=== PATIENT | female | born 1945 | race Caucasian/White ===

== ENCOUNTER 2017-04-21 15:20 | Emergency (ER) | payer MEDICARE ==
[2017-04-21 15:41] VITALS: BP 150/93
--- NOTE | 2017-04-21 18:03 | UC ---
Back Pain HPI - HPI Summary HPI Summary: Has been working with Primary care doctor to manage pain in arms and back - Patient is concerned with her increase sensitivity to tactile stimuli she needs an MRI-She states that no medications given to her by her doctor help. She states she is not sleeping well but she must take he provigil and refuses to decrease or hold dose. She states she does not want to take Neurontin as she is concerned it will depress her. Pt did not follow up on an appointment with pcp last week-- - History of Current Complaint Chief Complaint: UCGeneralIllness Stated Complaint: NERVE PAIN Time Seen by Provider: 04/21/17 16:42 Hx Obtained From: Patient ?: No Onset/Duration: Gradual Onset, Lasting Weeks, Still Present Timing: Constant Severity Initially: Moderate Severity Currently: Moderate Pain Intensity: 8 Pain Scale Used: 0-10 Numeric Back Pain: Is Diffuse Character: Aching, Unable to Describe - tactile discomfort Aggravating Factor(s): Movement, Lifting, Bending Alleviating Factor(s): Nothing Associated Signs And Symptoms: Positive: Negative - Allergies/Home Medications Allergies/Adverse Reactions: Allergies Allergy/AdvReac Type Severity Reaction Status Date / Time Cephalexin [From Keflex] Allergy Itching Verified 08/13/14 13:36 NSAIDs Allergy See Comment Verified 04/21/17 15:42 PMH/Surg Hx/FS Hx/Imm Hx Previously Healthy: No Endocrine History: Hypothyroidism Cardiovascular History: Hypertension Cancer History: Breast Cancer Other Cancer History: right breast reconstruction -patient states the implant has "calcified" - Surgical History Surgical History: Yes Surgery Procedure, Year, and Place: 1991, RIGHT BREAST L[place]PECTOMY, [place]. AXILLARY SURGERY 1991, [place] NT. [facility] [place], 1995. 1999, ABDOMINOPLASTY, [facility] [place]. 2005, RIGHT BREAST RECONSTRUCRION, [facility] [place]. 2013 RACHEL CARPAL TUNNEL RELEASE, [facility] [place] - Family History Known Family History: Positive: Unknown - Social History Occupation: Works From/At Home Lives: Alone Alcohol Use: None Substance Use Type: None Smoking Status (MU): Former Smoker Review of Systems Constitutional: Negative Skin: Negative Eyes: Negative ENT: Negative Respiratory: Negative Cardiovascular: Negative Gastrointestinal: Negative Genitourinary: Negative Motor: Negative Neurovascular: Negative Musculoskeletal: Negative, Other: - pain in her skin Neurological: Negative Psychological: Negative Is Patient Immunocompromised?: No All Other Systems Reviewed And Are Negative: Yes Physical Exam Triage Information Reviewed: Yes Appearance: Well-Appearing, No Pain Distress, Well-Nourished, Other: - very animated-stead gait moving all extremities with vigor Vital Signs: Initial Vital Signs Temp 98.2 F 04/21/17 15:37 Pulse 120 04/21/17 15:37 Resp 18 04/21/17 15:37 BP 150/93 04/21/17 15:37 Pulse Ox 99 04/21/17 15:37 Vital Signs Reviewed: Yes Eye Exam: Normal Eyes: Positive: Conjunctiva Clear ENT Exam: Normal ENT: Positive: Normal ENT inspection, Hearing grossly normal. Negative: Nasal congestion, Nasal drainage, Trismus, Muffled voice, Hoarse voice, Dental tenderness, Sinus tenderness Dental Exam: Normal Neck exam: Normal Neck: Positive: Supple, Nontender, No Lymphadenopathy, Other: - skin is tender to tough some trapezius muscle pain Respiratory Exam: Normal Respiratory: Positive: Other: - right breat implant swollen and firm states pcp and Dr. Deleon are aware---states it is calcified---patient unable to say if and studies have been done to evaluate the implant/breast Cardiovascular Exam: Normal Cardiovascular: Positive: No Murmur, Pulses Normal, Brisk Capillary Refill, Tachycardia Abdominal Exam: Normal Abdomen Description: Positive: Nontender, No Organomegaly, Soft Musculoskeletal Exam: Normal Musculoskeletal: Positive: Strength Intact, ROM Intact, No Edema Neurological Exam: Normal Neurological: Positive: Alert, Muscle Tone Normal Psychological Exam: Normal Skin Exam: Normal Back Pain Course/Dx - Course Course Of Treatment: encourage patient to accept appointment with pcp as she is seeking non-urgent MRI studies of neck for evaluation of discomfort, refused pain medications from me, also told she could go to ED for evaluation, but unsure with out acute neuro deficits that they would order a MRI in the ED-Plan to call and follow with pcp in morning - Differential Dx/Diagnosis Provider Diagnoses: Myalgia, Parestesia Discharge - Discharge Plan Condition: Stable Disposition: HOME Patient Education Materials: Cervical Spinal Stenosis (ED) Referrals: Arlet Solorio MD [Primary Care Provider] - 1 Day
== END 2017-04-21 17:30 | disposition home or self-care (01) ==
LOC: UCEAST 15:20
DX: M79.1 Myalgia (principal); R20.2 Paresthesia of skin; Z88.1 Allergy status to other antibiotic agents; Z88.6 Allergy status to analgesic agent; Z87.891 Personal history of nicotine dependence; M54.9 Dorsalgia, unspecified; M79.602 Pain in left arm; M79.601 Pain in right arm; I10 Essential (primary) hypertension
CPT/HCPCS: 99211; G0463

== ENCOUNTER 2018-06-24 15:35 | Inpatient (IN) | payer MEDICARE ==
--- NOTE | 2018-06-24 17:42 | ED ---
Dizziness - HPI Summary HPI Summary: This patient is a 72 year old female presenting to [facility] with a chief complaint of weakness since 5 days ago. Patient has a hx of brachial plexopathy. Patient states that she woke up on Tuesday and had trouble ambulating. She states that her symptoms are worsening. Patient states that she cannot walk. She states that the patient is scheduled to have neck surgery with Dr. Miller on 2018. The pain is rated 7/10 in severity. Symptoms aggravated by nothing. Symptoms alleviated by nothing. Patient additionally notes abd pain. - History Of Current Complaint Chief Complaint: EDWeakness Stated Complaint: "UNABLE TO AMBULATE PER PT" Time Seen by Provider: 06/24/18 17:19 Hx Obtained From: Patient Onset/Duration: Still Present, Gradually Timing: Constant Severity Currently: Moderate Character: Weak Aggravating Factor(s): Nothing Alleviating Factor(s): Nothing Associated Signs And Symptoms: Positive: Inability to Walk, Other: - abd pain - Allergies/Home Medications Allergies/Adverse Reactions: Allergies Allergy/AdvReac Type Severity Reaction Status Date / Time cephalexin [From Keflex] Allergy Severe Anaphylatic Verified 06/24/18 15:50 Shock NSAIDS (Non-Steroidal Allergy Severe Anaphylatic Verified 06/24/18 15:50 Anti-Inflamma Shock Home Medications: Home Medications Acetaminophen [Non-Aspirin Extra Strength] 1,000 mg PO Q6H 06/24/18 [History Confirmed 06/24/18] Ascorbic Acid [Vitamin C] 1,000 mg PO DAILY 06/24/18 [History Confirmed 06/24/18 ] Cinnamon Bark/Chromium Picolin [Cinnamon Plus Chromium Capsule] 1,000 mg PO 0500 06/24/18 [History Confirmed 06/24/18] Gabapentin 600 mg PO Q6H 06/24/18 [History Confirmed 06/24/18] Hydrochlorothiazide TAB* [Hydrodiuril TAB*] 25 mg PO DAILY 06/24/18 [History Confirmed 06/24/18] Juice Plus + 0.8 g PO DAILY 06/24/18 [History Confirmed 06/24/18] Levothyroxine TAB* [Synthroid TAB*] 112 mcg PO DAILY 06/24/18 [History Confirmed 06/24/18] Lisinopril 20 mg PO DAILY 06/24/18 [History Confirmed 06/24/18] Modafinil [Provigil] 200 mg PO BID 06/24/18 [History Confirmed 06/24/18] [place]-3S/Dha/Epa/Fish Oil [Fish Oil 1,200 mg Softgel] 1 cap PO DAILY 06/24/18 [ History Confirmed 06/24/18] Silver Sulfadiazine 1% 400gm* [SILVadine 1% 400 gm jar*] 1 applic TOPICAL DAILY 06/24/18 [History Confirmed 06/24/18] Tramadol HCl 100 mg PO Q6H 06/24/18 [History Confirmed 06/24/18] Turmeric Root Extract [Turmeric Curcumin] 500 mg PO DAILY 06/24/18 [History Confirmed 06/24/18] Vitamin B Complex CAP* [B Complex CAP*] 1 cap PO DAILY 06/24/18 [History Confirmed 06/24/18] Niacin 535 mg PO DAILY 06/25/18 [History Confirmed 06/25/18] Resveratrol 350 mg PO DAILY 06/25/18 [History Confirmed 06/25/18] PMH/Surg Hx/FS Hx/Imm Hx Previously Healthy: No Endocrine/Hematology History: Reports: Hx Thyroid Disease Denies: Hx Diabetes Cardiovascular History: Reports: Hx Hypertension - ON MEDS - WELL CONTROLLED Denies: Hx Pacemaker/ICD Respiratory History: Denies: Hx Asthma History: Denies: Hx Renal Disease Sensory History: Denies: Hx Hearing Aid Psychiatric History: Denies: Hx Panic Disorder - Cancer History Cancer Type, Location and Year: BREAST 1991 Hx Chemotherapy: Yes - 1991 Hx Radiation Therapy: Yes - 1991 - Surgical History Surgery Procedure, Year, and Place: 1991, RIGHT BREAST LUMPECTOMY, [place]. AXILLARY SURGERY 1991, [place] NT. [facility] [place], 1995. 1999, ABDOMINOPLASTY, [facility] [place]. 2004, RIGHT BREAST RECONSTRUCTION, [facility] [place]. 2013 RACHEL CARPAL TUNNEL RELEASE, [facility] [place] Infectious Disease History: No Infectious Disease History: Denies: Traveled Outside the [place] in Last 30 Days - Family History Known Family History: Negative: Diabetes - Social History Alcohol Use: None Hx Substance Use: No Substance Use Type: Reports: None Hx Tobacco Use: Yes Smoking Status (MU): Former Smoker Review of Systems Negative: Fever Positive: Abdominal Pain Neurological: Other - inability to ambulate Positive: Weakness All Other Systems Reviewed And Are Negative: Yes Physical Exam - Summary Physical Exam Summary: Appearance: The patient is emaciated in no acute distress and in no acute pain. Skin: The skin is warm and dry and skin color reflects adequate perfusion. HEENT: The head is normocephalic and atraumatic. The pupils are equal and reactive. The conjunctivae are clear and without drainage. Nares are patent and without drainage. Mouth reveals moist mucous membranes and the throat is without erythema and exudate. The external ears are intact. The ear canals are patent and without drainage. The tympanic membranes are intact. Neck: The neck is supple with full range of motion and non-tender. There are no carotid bruits. There is no neck vein distension. Respiratory: Chest is non-tender. Lungs are clear to auscultation and breath sounds are symmetrical and equal. Cardiovascular: Heart is regular rate and rhythm. There is no murmur or rub auscultated. There is no peripheral edema and pulses are symmetrical and equal. Abdomen: The abdomen is soft and non-tender. There are normal bowel sounds heard in all four quadrants and there is no organomegaly palpated. Musculoskeletal: There is no back tenderness noted. No workforce management analyst. No intrinsic muscle use in hand except minorly in left hand. Aduct thumb and flex third and fourth fingers slightly. Neurological: Patient is alert and oriented to person, place and time. Cranial nerves are grossly intact. Deep tendon reflexes are symmetrical and equal in all four extremities. Psychiatric: The patient has an appropriate affect and does not exhibit any anxiety or depression. Triage Information Reviewed: Yes Vital Signs On Initial Exam: Initial Vitals Temp Pulse Resp BP Pulse Ox 97.6 F 83 14 123/69 93 06/24/18 15:43 06/24/18 15:43 06/24/18 15:43 06/24/18 15:43 06/24/18 15:43 Vital Signs Reviewed: Yes Diagnostics - Vital Signs Vital Signs Temp Pulse Resp BP Pulse Ox 06/24/18 15:43 97.6 F 83 14 123/69 93 - Laboratory Result Diagrams: 06/25/18 06:17 06/25/18 06:17 Lab Statement: Any lab studies that have been ordered have been reviewed, and results considered in the medical decision making process. Dizzy Course/Dx - Course Course Of Treatment: Ms. Morales presented complaining of increased weakness. She has chronic neck pain and a brachial plexopathy. She had an MRI scan of her neck and low back a couple weeks ago. She has been getting steadily worse and essentially not getting out of bed and not eating. She has developed a decubitus ulcer. She comes in complaining that she cannot take care of herself anymore. She was reportedly supposed to have a visiting nurse come in on a daily basis but that has not been initiated yet. Her exam is remarkable for severe muscle wasting and weakness. She has an infected-looking decubitus ulcer. She was found to have a leukocytosis and to be severely dehydrated on labs. I asked the hospitalist service to consult for admission. She was given antibiotics and fluids in the emergency department. She did not meet septic criteria that she was treated aggressively. - Diagnoses Provider Diagnoses: Needs assistance while at home, Decubitus ulcer - Provider Notifications Discussed Care Of Patient With: Kieran Faith - Hospitalist Time Discussed With Above Provider: 19:47 - We discussed patient care with Dr. Faith (Hospitalist) at 1947 and they agreed to accept the patient. - Critical Care Time Critical Care Time: 30-74 min Discharge - Sign-Out/Discharge Documenting (check all that apply): Patient Departure Patient Received Moderate/Deep Sedation with Procedure: No - Discharge Plan Condition: Stable Disposition: ADMITTED TO [facility] - Billing Disposition and Condition Condition: STABLE Disposition: Admitted to [facility] - Attestation Statements Document Initiated by Bobby: Yes Documenting Scribbrandie: Kandice Elmore Provider For Whom Bobby is Documenting (Include Credential): MD Fabio Mirandaibbrandie Attestation: Kandice Alexandre, scribed for Devin Rojo MD on 06/25/18 at 1216. Scribe Documentation Reviewed: Yes Provider Attestation: The documentation as recorded by the Kandice garner accurately reflects the service I personally performed and the decisions made by me, Devin Rojo MD Status of Scribe Document: Viewed
[2018-06-24 18:24] LABS: ABS Basophils 0 10^3/ul (0-0.2); ABS Eosinophils 0.2 10^3/ul (0-0.6); ABS Lymphocytes 0.9 10^3/ul (1.0-4.8); ABS Monocytes 1.1 10^3/ul (0-0.8); ABS Neutrophils 10.4 10^3/ul (1.5-7.7); ABS Nucleated RBC 0 10^3/ul; Eosinophil % 1.5 %; Hematocrit 31 % (33-41); Hemoglobin 10.3 g/dL (12.0-16.0); Mean Corpuscular HGB Conc 33 g/dL (31-36); Mean Corpuscular Hemoglobin 32 pg (27-31); Mean Corpuscular Volume 96 fL (80-97); Mean Platelet Volume 7.3 fL (7.4-10.4); Nucleated Red Blood Cells % 0; Platelet Count 379 10^3/uL (150-450); Red Blood Count 3.21 10^6 /uL (3.70-4.87); Red Cell Distribution Width 13 % (10.5-15); White Blood Count 12.6 10^3/uL (3.5-10.8)
[2018-06-24 18:33] LABS: Albumin/Globulin Ratio 1.1 (1-3); BUN/Creatinine Ratio 45.2 (8-20); C Reactive Protein 306.9 mg/L (<8.01); Calcium 10.1 mg/dL (8.6-10.3); EGFR African American 34.1 (>60); EGFR Non-African American 28.2 (>60); Globulin 3.7 g/dL (2-4); Potassium 4.6 mmol/L (3.5-5.0); Total Bilirubin 0.4 mg/dL (0.2-1.0); Total Protein 7.7 g/dL (6.4-8.9)
[2018-06-24] MEDS ORDERED: Vancomycin(*) 1,000 MG in NS 0.9% 250 ML* 250 ML IVPB ONE (19:37)
[2018-06-24] MEDS ORDERED: NS 0.9% 1000 ML** 1,000 ML IV ONE (19:37)
[2018-06-24] MEDS ORDERED: traMADol TAB* 50 MG PO PRN (22:42)
[2018-06-24] MEDS ORDERED: Vancomycin(*) 0 MG in NS 0.9% 250 ML* 250 ML IVPB SCH (23:00)
--- NOTE | 2018-06-24 23:30 | PN ---
Progress Note - Progress Note Date of Service: 06/24/18 Note: Sacrum - See below Sacral wound - There is an unstageable pressure injury to the left sacrum, this area measures 2 cm x 2 cm. There is a superficial open area (this is where they have been applying silvadene), this area measures 5 cm x 4 cm x 0.1 cm. THere is a deep tissue injury to the right side of the sacrum. The surrounding skin has erythema and warm to the touch. There is some signs of a moisture associated skin injury to the left upper buttock.
[2018-06-25] MEDS: Gabapentin CAP(*) 300 MG PO SCH ×5 (00:13→22:19)
[2018-06-25] MEDS: NS 0.9% 1000 ML** 1,000 ML IV SCH ×2 (00:15→10:44)
[2018-06-25] MEDS: Morphine INJ* 2 MG/ML 1 ML SYRINGE (TWO MG - NEW SYRINGE VERSION) IV PRN ×2 (02:04→09:04)
[2018-06-25] MEDS ORDERED: Vancomycin per Pharmacy* NOTE FOLLOW UP PRN (02:33)
[2018-06-25 03:12] LABS: Urine Appearance Cloudy; Urine Bilirubin Negative (Negative); Urine Blood Negative (Negative); Urine Color Amber; Urine Glucose Negative (Negative); Urine Ketones Negative (Negative); Urine Nitrite Negative (Negative); Urine Protein Negative (Negative); Urine Specific Gravity 1.019 (1.010-1.030); Urine Urobilinogen Negative (Negative)
--- NOTE | 2018-06-25 04:16 | HP ---
CC: Rajwinder Coyle NP * HISTORY AND PHYSICAL: DATE OF ADMISSION: 06/24/18 PRIMARY CARE PROVIDER: Rajwinder Coyle NP. ATTENDING PHYSICIAN: Dr. Kieran Faith * (dictated by She Gore NP). CHIEF COMPLAINT: Pressure ulcer. HISTORY OF PRESENT ILLNESS: Ms. Morales is a 72-year-old female with a past medical history significant for hypothyroidism, hypertension, breast cancer; status post chemoradiation and breast lumpectomy, hyperlipidemia, and depression who states that approximately a week and a half ago she developed a pressure ulcer to her buttocks. Ms. Morales states that she has had difficulty with ambulation since 06/19/18, when she was seen at 2 doctors' offices in 1 day and felt that she did too much on that day. Prior to that, her mobility has been limited due to spinal stenosis. According to her medical record, her PCP notes she originally was seen for brachial plexopathy 1 to 2 years ago and was hesitant to have surgery. She reports seeing Neurosurgery, who according to her stated that she did not need to have surgery at that time. She has continued to have increased weakness in both arms and some lower extremity weakness in addition to bowel and bladder incontinence. She saw Dr. Miller after a cervical spine MRI showing "degenerative disk disease, osteoarthritis, a mild myelopathy at C3-4, moderate narrowing of the cervical canal at C3-C4, C4-C5, C5-C6, and C6-C7 with [id number] narrowing at C7- T1 and mild C2-C3 multilevel neural foraminal narrowing as previously discussed ". She reports sleeping in a recliner and she is unable to lie on her sides due to the discomfort in her arms. She is scheduled for cervical spine surgery on 07/04/[address] Miller. Due to not being very mobile, she developed a pressure injury that she reports has been present for approximately a week and a half. She states that the area started out to be approximately dime-sized. She saw her primary care provider on 06/19/18. At that time, the wound is described as being 3 cm and scabbed with no exudate or surrounding erythema. She was prescribed Silvadene twice daily and encouraged to use an eggcrate in her recliner. The patient continued to become more immobile over the past week. She denied any fevers, chills, chest pain, shortness of breath, cough, nausea, vomiting, diarrhea, abdominal pain. She reports upper and lower extremity weakness, some irritation when swallowing for 2 days, feeling as though something may be stuck and then this passes. She has intermittent bowel and bladder incontinence for approximately 1 month. She reports the pain in her buttocks is 7/10. She reports recently taking a vitamin D supplement, but when its level was high she discontinued it. When she continued to have discomfort and the wound became larger, she presented to the emergency room for further evaluation of her symptoms. While in the emergency room, she had labs showing leukocytosis with a white blood cell count of 12.6. She is afebrile, is not tachycardic. She is not tachypneic. She has a CRP of 367. She is noted to have elevated LFTs. She has elevated BUN and creatinine. Her BUN is significantly elevated from her previous labs and her creatinine is elevated. She appears to have stage 3 chronic kidney disease at baseline. She denies urinary symptoms such as dysuria , urgency, or frequency. She got a dose of vancomycin and 1 L of normal saline while in the emergency room. Hospitalists were asked to evaluate the patient for admission. PAST MEDICAL HISTORY: 1. Breast cancer, status post lumpectomy, chemotherapy, and radiation therapy. 2. Hypertension. 3. Hyperlipidemia. 4. Depression. 5. Bilateral carpal tunnel. 6. Hypothyroidism. 7. Former smoker. 8. Spondylosis with myelopathy of the cervical region. 9. Lumbar spinal stenosis. 10. Brachial plexopathy. 11. Anxiety. PAST SURGICAL HISTORY: 1. Status post right breast lumpectomy and lymph node dissection. 2. Status post abdominoplasty. 3. Status post right breast reconstruction. 4. Status post bilateral carpal tunnel releases. 5. Status post 2 cosmetic facial surgeries. 6. Status post right rotator cuff repair. HOME MEDICATIONS: 1. Gabapentin 600 mg by mouth every 6 hours. 2. Hydrochlorothiazide 25 mg by mouth daily. 3. Levothyroxine 112 mcg by mouth daily. 4. Lisinopril 20 mg by mouth daily. 5. Provigil 200 mg by mouth at 8 a.m. and 2 p.m. 6. Tramadol 100 mg by mouth every 6 hours. 7. Tylenol 1000 mg by mouth every 6 hours. 8. B complex 1 tablet by mouth daily. 9. Cinnamon plus chromium 1000 mg by mouth daily. 10. CoQ10 omega 3-5-9 1 tablet by mouth daily. 11. Fish oil 1200 mg by mouth daily. 12. Juice Plus 2 tablets by mouth daily. 13. Niacin 535 mg by mouth daily. 14. Resveratrol 350 mg by mouth daily. 15. Turmeric/curcumin 500 mg by mouth daily. 16. Vitamin C 1000 mg by mouth daily. 17. Vitamin E 670 mg by mouth daily. ALLERGIES: CEPHALEXIN and NSAIDS both cause anaphylaxis. FAMILY HISTORY: Denies family history of coronary artery disease. Paternal grandmother with a history of diabetes. Mother passed at age 79 from unknown cancer. Father passed at age 73 with Alzheimer dementia. SOCIAL HISTORY: She is a former smoker; she quit smoking cigarettes in 2008. She has a 6-vuqz-z-day 30-year smoking history. She smoked an e-cigarette for a few years, but has quit smoking e-cigarettes. Denies tobacco, alcohol, or recreational drug use. Her sister, Neelima, and cousin, Mimi, will be her surrogate decision makers in the event she is unable to make decisions for herself. REVIEW OF SYSTEMS: I performed a 10-point review of systems. All the pertinent positives and negatives are mentioned in the history of present illness. The remaining review of systems are negative. PHYSICAL EXAMINATION GENERAL APPEARANCE: The patient is alert, pleasant, appears to be in no acute distress. She is cachectic. VITAL SIGNS: Temperature is 97.8, heart rate 75, respiratory rate 14, O2 sat 95 % on room air, blood pressure 110/54. HEENT: Normocephalic, atraumatic. Pupils are equal and reactive to light. Extraocular movements are intact. Her mucous membranes are slightly dry. NECK: Supple. No lymphadenopathy. RESPIRATORY: No accessory muscle use. Lungs are clear to auscultation. CARDIOVASCULAR: Regular rate and rhythm. S1 and S2 present. No murmurs, rubs , or gallops heard. ABDOMEN: Soft, nontender, nondistended. Bowel sounds are present. EXTREMITIES: No lower extremity edema. MUSCULOSKELETAL: No clubbing or cyanosis noted. NEUROLOGIC: Alert and oriented x4. Cranial nerves II through XII are grossly intact. She has strong dorsi and plantar flexion. She has weak handgrips bilaterally; has almost no handgrip strength on the right side. She is able to move her wrists bilaterally, but very limited. The right arm is flaccid at the wrist. PSYCHOLOGICAL: Calm and cooperative. SKIN: She has a deep tissue injury to her sacrum. There is an area of dry dark eschar at the center of the wound measuring approximately 2 x 2 cm. There is a superficial open area surrounding this that is approximately 5 x 4 x 0.1 cm. The total area of the wound including the open area and the deep tissue injury measures 6 x 5 cm. The surrounding skin has mild erythema, slightly purplish discoloration towards the left buttock and side. Skin that looks slightly macerated and is warm to touch. There is no drainage noted. The center area is not boggy feeling. DIAGNOSTIC STUDIES/LAB DATA: Sodium 132, potassium 4.6, chloride 95, CO2 of 24 , BUN 80, creatinine 1.77, glucose 108. White blood cell count 12.6, hemoglobin 10.3, hematocrit 31, platelet count 379. Alk phos 180, AST 60, ALT 98, CRP 306.9. IMPRESSION: Ms. Morales is a 72-year-old female with past medical history significant for brachial plexopathy, spinal stenosis, hypothyroidism, hypertension, breast cancer, hyperlipidemia, and depression who presents to the emergency room with complaints of a pressure ulcer. She will be admitted as an inpatient for a sacral unstageable pressure injury with associated deep tissue injury. ASSESSMENT/PLAN: 1. Sacral pressure injury. There is an unstageable pressure injury in the center of wound and deep tissue injury surrounding. In addition, there is some suggestion of macerated skin from moisture in the surrounding tissue. The patient currently has mild leukocytosis, no tachycardia, no tachypnea, and is afebrile. She is noted to have a CRP of 306. She will be started on broad spectrum vancomycin to cover the possibility of cellulitis or deeper infection at this site. She states the wound has only been present for approximately a week and a half. With her elevated CRP, I am concerned for an osteomyelitis, but it seems less likely that this would occur in such a short period of time of a wound and the wound was reported to only be 3 cm in size 5 days ago. We are going to continue her on vancomycin for now. I recommend consulting surgery in the morning as I suspect this may require sharp debridement. She has been using Silvadene at home. We are going to hold on the Silvadene for now and just use barrier cream. The patient would like to avoid a urinary catheter if possible, so we will try a female external catheter. This may not work as she will be frequently turning and repositioning, but we will attempt to use it. If we continue to use the external feale catheter, it will need to be changed every 8 hours. If during the first 8-hour time period this does not remain in place with her turning and repositioning, we will discontinue use of the external urinary catheter and consider a Guzman catheter to protect her skin as the patient has both urine and bowel incontinence due to her spinal stenosis. We will recheck her labs tomorrow. Based off of the course of this wound, she may need a CT or MRI imaging to better evaluate for any abscesses or osteomyelitis. I recommend nutrition consult, additionally checking prealbumin to evaluate her nutrition status. She has had a hemoglobin A1c checked in April that was 5.7. 2. Fepci-cq-vbxqbpt kidney injury. She appears to have stage 3 chronic kidney disease at baseline and her creatinine is worse. We will give her IV fluids and recheck her labs in the morning. If her creatinine is not improving with IV hydration, we will check a FENa and consider getting a renal ultrasound. I am going to hold her hydrochlorothiazide and lisinopril. I suspect these have contributed to her acute kidney injury as I suspect she has not been eating and drinking well with her decreased mobility. 3. Leukocytosis. I suspect this is likely secondary to her sacral wound, but we will check urinalysis to evaluate for urinary tract infection. She denies cough or respiratory symptoms. I will hold off on a chest x-ray for now. 4. Elevated liver function tests. I question if this is in the setting of her acute infection or another process. We will recheck her LFTs in the morning and if they have not improved, consider liver imaging and a hepatitis panel. 5. Anemia. The patient denies any bleeding. She has not had a CBC in our system in almost 5 years. We will recheck her CBC tomorrow. Further workup will be based off of the repeat CBC. 6. Spondylosis with myelopathy. The patient has known cervical spinal stenosis. She is scheduled to have surgery with Dr. Miller on 07/04/18. She has bilateral brachial plexopathy from this. We will continue her gabapentin, hold for sedation. 7. Hypothyroidism. Her last TSH in April was 3.87. Continue her levothyroxine dosing. 8. Hypertension. Her blood pressures are soft. I am going to hold her hydrochlorothiazide and lisinopril, especially in the setting of an acute kidney injury. 9. Right knee pain. She states she has had several falls recently; one of them including landing on her knee. There is no crepitus, no deformity, and no pain with movement, but we will check an x-ray of the knee to just rule out any fractures. 10. Breast cancer. Status post lumpectomy, chemotherapy, and radiation. 11. Fluids, electrolytes. She will be on a regular diet. 12. Code status. Do not resuscitate. MOLST has been completed and placed on her chart. 13. DVT prophylaxis. She is at high risk. She will have subcu heparin. 14. Disposition. Inpatient. I suspect she may possibly need placement for wound healing. TIME SPENT: Time for this admission was approximately 75 minutes, greater than half of that was spent with the patient and her family discussing medications, past medical history, events leading to her arrival today, and performing a physical examination. Case has been reviewed with the attending, Dr. Faith, who agrees with the plan of care. Reviewed by JOVI PEREYRA 07/02/18 1249 [id number]/[facility] #: [id number] ANDREA
[2018-06-25] MEDS ORDERED: [UNRECOGNIZED DRUG - OTHER] PO SCH (05:00)
[2018-06-25] MEDS: [UNRECOGNIZED DRUG - OTHER] PO SCH (05:09)
[2018-06-25] MEDS ORDERED: Vancomycin Random Level* NOTE FOLLOW UP ONE (06:00)
[2018-06-25] MEDS: Heparin VIAL(*) 5000 UNITS/ML VIAL (FIVE THOUSAND) SUBCUT SCH ×3 (06:02→22:21)
[2018-06-25] MEDS: Levothyroxine TAB* 112 MCG TAB PO SCH (06:02)
[2018-06-25 06:28] LABS: ABS Basophils 0 10^3/ul (0-0.2); ABS Eosinophils 0.2 10^3/ul (0-0.6); ABS Lymphocytes 0.8 10^3/ul (1.0-4.8); ABS Monocytes 0.8 10^3/ul (0-0.8); ABS Neutrophils 7.1 10^3/ul (1.5-7.7); ABS Nucleated RBC 0 10^3/ul; Eosinophil % 2.1 %; Hematocrit 26 % (33-41); Hemoglobin 8.9 g/dL (12.0-16.0); Lymphocyte % 8.7 %; Mean Corpuscular HGB Conc 34 g/dL (31-36); Mean Corpuscular Hemoglobin 33 pg (27-31); Mean Corpuscular Volume 96 fL (80-97); Mean Platelet Volume 6.7 fL (7.4-10.4); Nucleated Red Blood Cells % 0; Platelet Count 322 10^3/uL (150-450); Red Blood Count 2.73 10^6 /uL (3.70-4.87); Red Cell Distribution Width 13 % (10.5-15); White Blood Count 8.8 10^3/uL (3.5-10.8)
[2018-06-25 06:47] LABS: Albumin 3.2 g/dL (3.2-5.2); Albumin/Globulin Ratio 1.1 (1-3); BUN/Creatinine Ratio 52.5 (8-20); Calcium 8.8 mg/dL (8.6-10.3); EGFR African American 52.4 (>60); EGFR Non-African American 43.3 (>60); Potassium 4.1 mmol/L (3.5-5.0); Total Bilirubin 0.3 mg/dL (0.2-1.0); Total Protein 6.2 g/dL (6.4-8.9)
[2018-06-25 06:55] LABS: Vancomycin Random 12.4 mcg/mL
--- NOTE | 2018-06-25 07:48 | PN ---
Subjective Date of Service: 06/25/18 Interval History: Ms. Morales reports feeling very stressed and anxious. She has pain in her arms that she describes as severe. She also feels like she has a tight girdle around her stomach. She is crying and notes that she is feeling terrible but she feels it is difficult to describe. She denies nausea, chest pain or SOB. Objective Active Medications: Ascorbic Acid (Vitamin C Tab*) 1,000 mg PO DAILY GUTIERREZ Gabapentin (Neurontin Cap(*)) 600 mg PO Q6H GUTIERREZ Heparin Sodium (Porcine) (Heparin Vial(*)) 5,000 units SUBCUT Q8HR GUTIERREZ Sodium Chloride (Ns 0.9% 1000 Ml) 1,000 mls @ 100 mls/hr IV PER RATE GUTIERREZ Levothyroxine Sodium (Synthroid Tab*) 112 mcg PO 0600 GUTIERREZ Modafinil (Provigil Tab*) 200 mg PO 0800,1400 GUTIERREZ Morphine Sulfate (Morphine Inj (Syringe))*) 1 mg IV Q2H PRN [Cinnamon Plus Chromium Capsule] 1, 000 1,000 mg PO 0500 [facility] (Juice Plus + 0.8 G) 0.8 g PO 0500 [facility] Pharmacy Consult (Vancomycin Per Pharmacy*) 1 note FOLLOW UP . PRN Tramadol HCl (Ultram*) 100 mg PO Q6H PRN Vital Signs: Temp Pulse Resp BP Pulse Ox 98.5 F 68 18 105/57 94 06/25/18 03:47 06/25/18 03:47 06/25/18 06:02 06/25/18 03:47 06/25/18 03:47 Oxygen Devices in Use Now: None Appearance: Female sitting up in chair in NAD Eyes: No Scleral Icterus Ears/Nose/Mouth/Throat: Mucous Membranes Moist Neck: Trachea Midline Respiratory: Symmetrical Chest Expansion and Respiratory Effort, Clear to Auscultation Cardiovascular: NL Sounds; No Murmurs; No JVD, No Edema Abdominal: NL Sounds; No Tenderness; No Distention Extremities: No Edema Skin: - - Sacral debubitus ulcer Neurological: Alert and Oriented x 3, NL Muscle Strength and Tone Nutrition: Taking PO's Result Diagrams: 06/25/18 06:17 06/25/18 06:17 Assess/Plan/Problems-Billing Assessment: Ms. Morales is a 72 yo F with a PMH of spinal stenosis and limited mobility and intermittent bowel and bladder incontinence with plan for cervical spine surgery on 07/04/[address] Miller, hypertension, and breast cancer s/p chemoradiation and lumpectomy who was admitted on 06/24/18 with a sacral pressure ulcer, acute on chronic kidney injury, and new anemia. - Patient Problems (1) Pressure ulcer Comment: - Appreciate recommendation from She Pickett, Wound Care [employer]ADING [employer] - Unstageable due to eschar, no evidence of sepsis but CRP 300 - Surgical consult for debridement, Rusty called - Continue vancomyin (2) Anemia Comment: - Worsening anemia overnight with IV fluids, BUN also elevated - Plan to check stool for occult blood - Start PPI (3) Acute kidney injury superimposed on CKD Comment: - Baseline CKD Stage 3 - Creatinine improved overnight with IVF, essentially now at baseline - Continue to hold hctz and lisinopril (4) Elevated LFTs Comment: - Resolving, suspect secondary to acute illness (5) Hypertension Comment: - SBP 100s. - Hold hctz and lisinopril (6) Spinal stenosis Comment: - With bilateral brachial plexopathy - Plan for surgery with Dr. Miller on 07/04/18 - Patient on tramadol and gabapentin at home, oxycodone/apap added. (7) Anxiety Comment: - Patient anxious and crying throughout interview. - She reports that modafinil is for major depression. - Plan to add low dose benzo prn. (8) Hypothyroidism Comment: - Continue levothyroxine (9) DVT prophylaxis Comment: - Heparin SQ (10) DNR (do not resuscitate) Comment: Status and Disposition: Inpatient, anticipate need for ALEXANDER
[2018-06-25] MEDS: Ascorbic Acid TAB* 500 MG PO SCH (09:04)
[2018-06-25] MEDS: Modafinil TAB* 100 MG PO SCH ×2 (09:04→13:20)
[2018-06-25] MEDS: Pantoprazole TAB * 40 MG TAB PO SCH ×2 (09:04→22:19)
[2018-06-25] MEDS: Vancomycin(*) 750 MG in NS 0.9% 250 ML* 250 ML IVPB SCH (13:20)
[2018-06-25] MEDS: ALPRAZolam TAB* 0.25 MG PO PRN (14:39)
[2018-06-25] MEDS: oxyCODONE/Acetamin 5/325 MG* TAB PO PRN (14:40)
--- NOTE | 2018-06-25 20:45 | CONS ---
CC: [facility]; Rajwinder Coyle NP * CONSULTATION REPORT: DATE OF CONSULT: 06/25/18 HISTORY OF PRESENT ILLNESS: Ms. Morales is a 72-year-old female admitted with sacral ulcer, seen by the grants specialist for the hospitalist service and a surgical consultation was recommended for an unstageable sacral ulcer. The patient has a complex history of spinal stenosis at the cervical region and possibly the lumbar. She has been complaining of falling recently and that is why she presented to the hospital. Usually, her knees will give way and she will fall. The patient also suffers with decreased motor ability of the upper extremities, possibly secondary to a brachial plexus syndrome according to the patient. She has been awaiting surgery on her neck when she had worsening lower extremity symptoms as well as the falls. She does sleep in a bed and recently had been noted to have a sacral ulcer. It is painful and she feels that the wound started showing up just about 2 weeks ago. The patient has not seen a physician for this. She is incontinent of both stool and urine. The patient lives alone. She tries to cook for herself, but mostly cooks for her dog. She has lost about 15 pounds in the last year, now weighs 98 pounds with a BMI just under 20. PAST MEDICAL HISTORY: Reviewed. PAST SURGICAL HISTORY: Reviewed. SOCIAL HISTORY: Lives at home. She quit smoking, but still vapes. REVIEW OF SYSTEMS: She has never seen a vascular surgeon. She denies claudication- type symptoms. Numbness of the lower extremities as well as weakness of the knee as described. PHYSICAL EXAM: She is a frail-appearing woman, appears older than stated age with BMI of 20. She is afebrile. Vital signs are stable. She answers questions appropriately. Her abdomen is soft, nondistended, nontender. Her sacral region reveals a 4 x 3 cm necrotic area of skin that represents an unstageable ulcer without any fluctuance or cellulitis. It is tender to the touch. It is moist. The patient does have some sort of catheter in her bladder , but I have recommended a more indwelling catheter. Extremities show atrophy to the hands bilaterally and changes in the skin consistent with vascular disease in the lower extremities. IMPRESSION: Unstageable sacral ulcer that shows no evidence of abscess. It is only moist I believe from urinary incontinence. PLAN/RECOMMENDATIONS: Plan will be for dry dressing at the site and watchful waiting. I recommend an indwelling Guzman catheter. The patient may also be suffering with vitamin deficiency and possible thiamine deficiency given her weakness, but it is more likely due to spinal disease. Nevertheless, vitamin labs check would be warranted given this patient's presentation. Nutrition and a rotating bed would be of assistance to help with this significant sacral ulcer. We will continue to follow the patient. [id number]/[facility] #: [id number] ANDREA
[2018-06-26] MEDS: [UNRECOGNIZED DRUG - OTHER] PO SCH (05:40)
[2018-06-26] MEDS: [UNRECOGNIZED DRUG - OTHER] PO SCH (05:40)
[2018-06-26] MEDS: Levothyroxine TAB* 112 MCG TAB PO SCH (05:41)
[2018-06-26] MEDS: Gabapentin CAP(*) 300 MG PO SCH ×4 (05:42→22:58)
[2018-06-26] MEDS: Heparin VIAL(*) 5000 UNITS/ML VIAL (FIVE THOUSAND) SUBCUT SCH (05:43)
[2018-06-26 06:48] LABS: ABS Basophils 0 10^3/ul (0-0.2); ABS Eosinophils 0.2 10^3/ul (0-0.6); ABS Lymphocytes 0.9 10^3/ul (1.0-4.8); ABS Monocytes 0.7 10^3/ul (0-0.8); ABS Neutrophils 5.3 10^3/ul (1.5-7.7); ABS Nucleated RBC 0 10^3/ul; Eosinophil % 2.2 %; Hematocrit 25 % (33-41); Hemoglobin 8.1 g/dL (12.0-16.0); Lymphocyte % 13.3 %; Mean Corpuscular HGB Conc 33 g/dL (31-36); Mean Corpuscular Hemoglobin 32 pg (27-31); Mean Corpuscular Volume 97 fL (80-97); Mean Platelet Volume 7.3 fL (7.4-10.4); Nucleated Red Blood Cells % 0; Platelet Count 287 10^3/uL (150-450); Red Blood Count 2.55 10^6 /uL (3.70-4.87); Red Cell Distribution Width 13 % (10.5-15); White Blood Count 7.1 10^3/uL (3.5-10.8)
[2018-06-26 06:50] LABS: BUN/Creatinine Ratio 39.5 (8-20); Calcium 8.4 mg/dL (8.6-10.3); EGFR African American 78.5 (>60); EGFR Non-African American 64.9 (>60); Potassium 4.1 mmol/L (3.5-5.0)
[2018-06-26] MEDS: ALPRAZolam TAB* 0.25 MG PO PRN (08:25)
[2018-06-26] MEDS: Modafinil TAB* 100 MG PO SCH (08:56)
[2018-06-26] MEDS: Pantoprazole TAB * 40 MG TAB PO SCH ×2 (08:56→22:56)
[2018-06-26] MEDS: Ascorbic Acid TAB* 500 MG PO SCH (08:56)
[2018-06-26] MEDS: NS 0.9% 1000 ML** 1,000 ML IV SCH (09:02)
[2018-06-26] MEDS: Ferrous Sulfate TAB* 325 MG PO SCH (11:11)
[2018-06-26 12:58] LABS: Total Iron Binding Capacity 105 mcg/dL (250-450); Transferrin < 75 mg/dL (203-362)
[2018-06-26 13:00] LABS: % Iron Saturation 16 % (15-55); Iron < 17 ug/dL (50-212)
[2018-06-26] MEDS: Vancomycin(*) 750 MG in NS 0.9% 250 ML* 250 ML IVPB SCH (13:12)
[2018-06-26 13:50] LABS: Ferritin 261.1 ng/mL (11-307)
--- NOTE | 2018-06-26 15:12 | PN ---
Subjective Date of Service: 06/26/18 Interval History: Patient seen and examined. Remains tearful, difficult to redirect when discussing plan of care. States she has pain all over and is stating she is "going to in here and never get out". Reassurance provided. Objective Active Medications: Alprazolam (Xanax Tab*) 0.25 mg PO Q8H PRN PRN Reason: ANXIETY Last Admin: 06/26/18 08:25 Dose: 0.25 mg Ascorbic Acid (Vitamin C Tab*) 1,000 mg PO DAILY [facility] Last Admin: 06/26/18 08:56 Dose: 1,000 mg Buspirone HCl (Buspar Tab*) 5 mg PO TID [facility] Ferrous Sulfate (Ferrous Sulfate Tab*) 325 mg PO DAILY [facility] Last Admin: 06/26/18 11:11 Dose: 325 mg Gabapentin (Neurontin Cap(*)) 600 mg PO Q6H [facility] Last Admin: 06/26/18 11:03 Dose: Not Given Sodium Chloride (Ns 0.9% 1000 Ml) 1,000 mls @ 100 mls/hr IV PER RATE [facility] Last Admin: 06/26/18 09:02 Dose: 100 mls/hr Vancomycin HCl 750 mg/ Sodium (Chloride) 250 mls @ 166.667 mls/hr IVPB Q24H [facility] Last Admin: 06/26/18 13:12 Dose: 166.667 mls/hr Levothyroxine Sodium (Synthroid Tab*) 112 mcg PO 0600 [facility] Last Admin: 06/26/18 05:41 Dose: 112 mcg [Cinnamon Plus Chromium Capsule] 1, 000 1,000 mg PO 0500 [facility] Last Admin: 06/26/18 05:40 Dose: Not Given (Juice Plus + 0.8 G) 0.8 g PO 0500 [facility] Last Admin: 06/26/18 05:40 Dose: Not Given Oxycodone/Acetaminophen (Percocet 5/325 Tab*) 1 tab PO Q4H PRN PRN Reason: PAIN Last Admin: 06/25/18 14:40 Dose: 1 tab Pantoprazole Sodium (Protonix Tab*) 40 mg PO BID [facility] Last Admin: 06/26/18 08:56 Dose: 40 mg Pharmacy Consult (Vancomycin Per Pharmacy*) 1 note FOLLOW UP . PRN PRN Reason: PER PROTOCOL Pharmacy Profile Note (Vancomycin Trough Check) 1 note FOLLOW UP ONCE ONE Stop: 06/27/18 11:31 Tramadol HCl (Ultram*) 100 mg PO Q6H PRN PRN Reason: PAIN - MILD TO MODERATE Vital Signs - 8 hr 06/26/18 06/26/18 06/26/18 07:18 08:00 08:25 Temperature 99.5 F Pulse Rate 75 Respiratory 16 18 18 Rate Blood Pressure 84/47 (mmHg) O2 Sat by Pulse 91 Oximetry 06/26/18 06/26/18 08:32 08:33 Temperature Pulse Rate 79 Respiratory Rate Blood Pressure 86/51 82/48 (mmHg) O2 Sat by Pulse Oximetry Oxygen Devices in Use Now: None Appearance: alert, tearful Eyes: No Scleral Icterus, PERRLA Ears/Nose/Mouth/Throat: NL Teeth, Lips, Gums, Mucous Membranes Moist Neck: NL Appearance and Movements; NL JVP, Trachea Midline Respiratory: Symmetrical Chest Expansion and Respiratory Effort, Clear to Auscultation Cardiovascular: NL Sounds; No Murmurs; No JVD, RRR, No Edema Abdominal: NL Sounds; No Tenderness; No Distention, No Hepatosplenomegaly Skin: No Rash or Ulcers, No Nodules or Sclerosis Neurological: Alert and Oriented x 3, - - severe cervical myelopathy with weak UE bilat Nutrition: Taking PO's Result Diagrams: 06/26/18 06:26 06/26/18 06:26 Microbiology and Other Data: Microbiology 06/26/18 08:50 Stool Occult Blood (ALCIDES) - Final Stool Assess/Plan/Problems-Billing Assessment: Ms. Morales is a 72 yo F with a PMH of spinal stenosis and limited mobility and intermittent bowel and bladder incontinence with plan for cervical spine surgery on 07/04/[address] Miller, hypertension, and breast cancer s/p chemoradiation and lumpectomy who was admitted on 06/24/18 with a sacral pressure ulcer, acute on chronic kidney injury, and new anemia. - Patient Problems (1) Spinal stenosis Code(s): M48.00 - SPINAL STENOSIS, SITE UNSPECIFIED SNOMED Code(s): 01294812 Comment: - With bilateral brachial plexopathy - Patient on tramadol and gabapentin at home, oxycodone/apap added - Per Dr. Miller, patient is not a surgical candidated 2/2 sacral wound and high risk, no plan for surgery at this time - Discussed palliative care with patient and her HC proxy at bedside (2) Pressure ulcer Code(s): L89.90 - PRESSURE ULCER OF UNSPECIFIED SITE, UNSPECIFIED STAGE SNOMED Code(s): 780735772 Comment: - Appreciate recommendation from She Pickett, Wound Care [employer]SEMBL[employer] - Unstageable due to eschar, no evidence of sepsis but CRP 300 - Surgery recommends local care and no debridement - Continue vancomyin for now - T&P Q2h (3) Acute kidney injury superimposed on CKD Code(s): N17.9 - ACUTE KIDNEY FAILURE, UNSPECIFIED; N18.9 - CHRONIC KIDNEY DISEASE, UNSPECIFIED SNOMED Code(s): 02114212 Comment: - Baseline CKD Stage 3 - Creatinine improved overnight with IVF, essentially now at baseline - Continue to hold hctz and lisinopril (4) Anemia Code(s): D64.9 - ANEMIA, UNSPECIFIED SNOMED Code(s): 083558229 Comment: - Worsening anemia overnight with IV fluids, BUN also elevated - Likely AOCD with acute dilution 2/2 IVF - Stool occult negative - Start ferrous sulfate, may need to transfuse if drops any further (5) Anxiety Code(s): F41.9 - ANXIETY DISORDER, UNSPECIFIED SNOMED Code(s): 27104614 Comment: - Reports that modafinil is for "major depression", however, LFTs are elevated and may be related to this med, will DC - xanax added yesterday, does not seem to be helping - Will add buspar - Supportive care (6) Elevated LFTs Code(s): R94.5 - ABNORMAL RESULTS OF LIVER FUNCTION STUDIES SNOMED Code(s): 868658700 Comment: - Improving, recheck in AM and avoid liver toxic meds (7) Hypertension Code(s): I10 - ESSENTIAL (PRIMARY) HYPERTENSION SNOMED Code(s): 63973107 Comment: - hypotensive, hold meds (8) Hypothyroidism Code(s): E03.9 - HYPOTHYROIDISM, UNSPECIFIED SNOMED Code(s): 38252276 Comment: - Continue levothyroxine (9) DVT prophylaxis Code(s): SLE2538 - SNOMED Code(s): 676490653 Comment: - Heparin SQ discontinued in light of low H&H (10) DNR (do not resuscitate) Comment: - Limited interventions on MOLST, will need to be revisited Status and Disposition: Inpatient. Patient's condition is severe and she is currently non-operative. Palliative/Hospice consult pending, as patient cannot ambulate, is incontinent of bowel and bladder and unable to feed herself 2/2 myelopathy. Concern that wound will continue to advance, she is also high risk for secondary infection, sepsis and PNA. Prognosis: Guarded.
[2018-06-26] MEDS: busPIRone TAB* 5 MG PO SCH ×2 (15:17→22:56)
--- NOTE | 2018-06-26 15:55 | CONSULT ---
Palliative / Hospice Consult Ordering Provider: Ame Lester-Jonna - Subjective Code Status: DNR Advance Directives Location: In Chart MOLST Part A Completed: Yes - on chart MOLST Part E Completed:: Yes - on chart - History or Present Illness History or Present Illness: 72 yo female with spinal stenosis and brachial plexopathy presented to ER with sacral ulcer and pain. According to pt and cousin pt was doing ok but missed several doses of her gabapentin and had urinary incontinence was unable to move and developed a sacral wound. She was scheduled for surgery on her spinal stenosis but was cancelled due to malnutrition, anemia and sacral wound. Pt lives on her own non drinker, non drug user ex tob user retired artist. She is an only child and both parents are . She does have a cousin Mimi who is helping her get care after leaving the hospital. PMH significant for hypothyroid, HTN, breast ca s/p chemoradiation and lumpectomy distant past, hyperlipidemia, depression and anxiety. H/H 8.1/25 BUN/Cr 34/.86 egfr 64.9 iron <17 tprot 6.2, alb 3.2 CRP 306.9 and prealbumin 13. Lab Values: Abnormal Lab Results 06/26/18 06/26/18 06/26/18 06:26 06:26 06:26 WBC 7.1 RBC 2.55 L Hgb 8.1 L Hct 25 L MCV 97 MCH 32 H MCHC 33 RDW 13 Plt Count 287 MPV 7.3 L Neut % (Auto) 74.5 Lymph % (Auto) 13.3 Ector % (Auto) 9.5 Eos % (Auto) 2.2 Baso % (Auto) 0.5 Absolute Neuts (auto) 5.3 Absolute Lymphs (auto) 0.9 L Absolute Monos (auto) 0.7 Absolute Eos (auto) 0.2 Absolute Basos (auto) 0 Absolute Nucleated RBC 0 Nucleated RBC % 0 Sodium 141 Potassium 4.1 Chloride 113 H Carbon Dioxide 23 Anion Gap 5 BUN 34 H Creatinine 0.86 Est GFR ( Amer) 78.5 Est GFR (Non-Af Amer) 64.9 BUN/Creatinine Ratio 39.5 H Glucose 108 H Calcium 8.4 L Iron TIBC % Saturation Unsat Iron Binding Transferrin Ferritin Vitamin B12 Blood Type A Positive Antibody Screen Negative Crossmatch See Detail 06/26/18 09:59 WBC RBC Hgb Hct MCV MCH MCHC RDW Plt Count MPV Neut % (Auto) Lymph % (Auto) Ector % (Auto) Eos % (Auto) Baso % (Auto) Absolute Neuts (auto) Absolute Lymphs (auto) Absolute Monos (auto) Absolute Eos (auto) Absolute Basos (auto) Absolute Nucleated RBC Nucleated RBC % Sodium Potassium Chloride Carbon Dioxide Anion Gap BUN Creatinine Est GFR ( Amer) Est GFR (Non-Af Amer) BUN/Creatinine Ratio Glucose Calcium Iron < 17 L TIBC 105 L % Saturation 16 Unsat Iron Binding < 90 Transferrin < 75 L Ferritin 261.1 Vitamin B12 1143 H Blood Type Antibody Screen Crossmatch Laboratory Last Values WBC 7.1 10^3/uL (3.5-10.8) 06/26/18 06:26 RBC 2.55 10^6 /uL (3.70-4.87) L 06/26/18 06:26 Hgb 8.1 g/dL (12.0-16.0) L 06/26/18 06:26 Hct 25 % (33-41) L 06/26/18 06:26 MCV 97 fL (80-97) 06/26/18 06:26 MCH 32 pg (27-31) H 06/26/18 06:26 MCHC 33 g/dL (31-36) 06/26/18 06:26 RDW 13 % (10.5-15) 06/26/18 06:26 Plt Count 287 10^3/uL (150-450) 06/26/18 06:26 MPV 7.3 fL (7.4-10.4) L 06/26/18 06:26 Neut % (Auto) 74.5 % 06/26/18 06:26 Lymph % (Auto) 13.3 % 06/26/18 06:26 Ector % (Auto) 9.5 % 06/26/18 06:26 Eos % (Auto) 2.2 % 06/26/18 06:26 Baso % (Auto) 0.5 % 06/26/18 06:26 Absolute Neuts (auto) 5.3 10^3/ul (1.5-7.7) 06/26/18 06:26 Absolute Lymphs (auto) 0.9 10^3/ul (1.0-4.8) L 06/26/18 06:26 Absolute Monos (auto) 0.7 10^3/ul (0-0.8) 06/26/18 06:26 Absolute Eos (auto) 0.2 10^3/ul (0-0.6) 06/26/18 06:26 Absolute Basos (auto) 0 10^3/ul (0-0.2) 06/26/18 06:26 Absolute Nucleated RBC 0 10^3/ul 06/26/18 06:26 Nucleated RBC % 0 06/26/18 06:26 Sodium 141 mmol/L (135-145) 06/26/18 06:26 Potassium 4.1 mmol/L (3.5-5.0) 06/26/18 06:26 Chloride 113 mmol/L (101-111) H 06/26/18 06:26 Carbon Dioxide 23 mmol/L (22-32) 06/26/18 06:26 Anion Gap 5 mmol/L (2-11) 06/26/18 06:26 BUN 34 mg/dL (6-24) H 06/26/18 06:26 Creatinine 0.86 mg/dL (0.51-0.95) 06/26/18 06:26 Est GFR ( Amer) 78.5 (>60) 06/26/18 06:26 Est GFR (Non-Af Amer) 64.9 (>60) 06/26/18 06:26 BUN/Creatinine Ratio 39.5 (8-20) H 06/26/18 06:26 Glucose 108 mg/dL (70-100) H 06/26/18 06:26 Calcium 8.4 mg/dL (8.6-10.3) L 06/26/18 06:26 Iron < 17 ug/dL (50-212) L 06/26/18 09:59 TIBC 105 mcg/dL (250-450) L 06/26/18 09:59 % Saturation 16 % (15-55) 06/26/18 09:59 Unsat Iron Binding < 90 ug/dL 06/26/18 09:59 Transferrin < 75 mg/dL (203-362) L 06/26/18 09:59 Ferritin 261.1 ng/mL (11-307) 06/26/18 09:59 Total Bilirubin 0.30 mg/dL (0.2-1.0) 06/25/18 06:17 AST 39 U/L (13-39) 06/25/18 06:17 ALT 71 U/L (7-52) H 06/25/18 06:17 Alkaline Phosphatase 158 U/L (34-104) H 06/25/18 06:17 C-Reactive Protein 306.90 mg/L (<8.01) H 06/24/18 18:10 Total Protein 6.2 g/dL (6.4-8.9) L 06/25/18 06:17 Albumin 3.2 g/dL (3.2-5.2) 06/25/18 06:17 Globulin 3.0 g/dL (2-4) 06/25/18 06:17 Albumin/Globulin Ratio 1.1 (1-3) 06/25/18 06:17 Prealbumin 13 mg/dL (18-38) L 06/25/18 06:17 Vitamin B12 1143 pg/mL (180-914) H 06/26/18 09:59 Urine Color Rachel 06/25/18 01:50 Urine Appearance Cloudy 06/25/18 01:50 Urine pH 5.0 (5-9) 06/25/18 01:50 Ur Specific Slade 1.019 (1.010-1.030) 06/25/18 01:50 Urine Protein Negative (Negative) 06/25/18 01:50 Urine Ketones Negative (Negative) 06/25/18 01:50 Urine Blood Negative (Negative) 06/25/18 01:50 Urine Nitrate Negative (Negative) 06/25/18 01:50 Urine Bilirubin Negative (Negative) 06/25/18 01:50 Urine Urobilinogen Negative (Negative) 06/25/18 01:50 Ur Leukocyte Esterase Negative (Negative) 06/25/18 01:50 Urine Glucose Negative (Negative) 06/25/18 01:50 Urine Ascorbic Acid * (Negative) A 06/25/18 01:50 Random Vancomycin 12.4 mcg/mL 06/25/18 06:17 Blood Type A Positive 06/26/18 06:26 Antibody Screen Negative 06/26/18 06:26 Crossmatch See Detail 06/26/18 06:26 - Objective Active Medications: Alprazolam (Xanax Tab*) 0.25 mg PO Q8H PRN PRN Reason: ANXIETY Last Admin: 06/26/18 08:25 Dose: 0.25 mg Ascorbic Acid (Vitamin C Tab*) 1,000 mg PO DAILY [facility] Last Admin: 06/26/18 08:56 Dose: 1,000 mg Buspirone HCl (Buspar Tab*) 5 mg PO TID [facility] Last Admin: 06/26/18 15:17 Dose: 5 mg Ferrous Sulfate (Ferrous Sulfate Tab*) 325 mg PO DAILY [facility] Last Admin: 06/26/18 11:11 Dose: 325 mg Gabapentin (Neurontin Cap(*)) 600 mg PO Q6H [facility] Last Admin: 06/26/18 11:03 Dose: Not Given Sodium Chloride (Ns 0.9% 1000 Ml) 1,000 mls @ 100 mls/hr IV PER RATE [facility] Last Admin: 06/26/18 09:02 Dose: 100 mls/hr Vancomycin HCl 750 mg/ Sodium (Chloride) 250 mls @ 166.667 mls/hr IVPB Q24H [facility] Last Admin: 06/26/18 13:12 Dose: 166.667 mls/hr Levothyroxine Sodium (Synthroid Tab*) 112 mcg PO 0600 [facility] Last Admin: 06/26/18 05:41 Dose: 112 mcg [Cinnamon Plus Chromium Capsule] 1, 000 1,000 mg PO 0500 [facility] Last Admin: 06/26/18 05:40 Dose: Not Given (Juice Plus + 0.8 G) 0.8 g PO 0500 [facility] Last Admin: 06/26/18 05:40 Dose: Not Given Oxycodone/Acetaminophen (Percocet 5/325 Tab*) 1 tab PO Q4H PRN PRN Reason: PAIN Last Admin: 06/25/18 14:40 Dose: 1 tab Pantoprazole Sodium (Protonix Tab*) 40 mg PO BID [facility] Last Admin: 06/26/18 08:56 Dose: 40 mg Pharmacy Consult (Vancomycin Per Pharmacy*) 1 note FOLLOW UP . PRN PRN Reason: PER PROTOCOL Pharmacy Profile Note (Vancomycin Trough Check) 1 note FOLLOW UP ONCE ONE Stop: 06/27/18 11:31 Senna (Senokot Tab*) 1 tab PO DAILY PRN PRN Reason: CONSTIPATION Tramadol HCl (Ultram*) 100 mg PO Q6H PRN PRN Reason: PAIN - MILD TO MODERATE Vital Signs: Vital Signs: Temp Pulse Resp BP Pulse Ox 99.5 F 79 18 82/48 91 06/26/18 07:18 06/26/18 08:32 06/26/18 08:25 06/26/18 08:33 06/26/18 07:18 Patient Weight: Weight 44.724 kg Intake and Output: Intake & Output 06/24/18 06/25/18 06/26/18 06/27/18 06:59 06:59 06:59 06:59 Intake Total 1999 4166 Output Total 230 2525 Balance 1770 1641 Weight 44.724 kg Intake: IV Fluids 1999 328 ABX - VANCOMYCIN 250 NS (0.9%) 3036 Oral 880 Output: Guzman 230 2525 Other: Estimated Void Large # Bowel Movements 0 # Voids 2 ADLs: Meal Record Start: 06/24/18 22: 47 Freq: DAILY@0900,1400,1800 Status: Active Protocol: Created 06/24/18 22:47 System (Rec: 06/24/18 22:47 System MED-C12) Document 06/25/18 09:00 [id number] (Rec: 06/25/18 13:09 [id number] MED-C11) Document 06/25/18 14:00 [id number] (Rec: 06/25/18 14:03 [id number] MED-C09) Document 06/25/18 18:00 [id number] (Rec: 06/25/18 18:48 [id number] MED-C11) Document 06/26/18 09:00 [id number] (Rec: 06/26/18 12:00 [id number] MED-C09) Intake and Output Start: 06/24/18 15: 49 Freq: Status: Active Protocol: Created 06/24/18 15:49 System (Rec: 06/24/18 15:49 System ED-C24) Intake and Output Start: 06/24/18 22: 47 Freq: DAILY@0600,1400,2200 Status: Active Protocol: Created 06/24/18 22:47 System (Rec: 06/24/18 22:47 System MED-C12) Document 06/25/18 05:18 [id number] (Rec: 06/25/18 05:19 [id number] MED-C42) Document 06/25/18 14:00 [id number] (Rec: 06/25/18 14:03 [id number] MED-C09) Document 06/25/18 21:46 [id number] (Rec: 06/25/18 21:47 [id number] MED-C14) Document 06/26/18 05:21 [id number] (Rec: 06/26/18 05:22 [id number] MED-C13) Eyes: No Scleral Icterus, PERRLA Ears/Nose/Mouth/Throat: NL Teeth, Lips, Gums, Mucous Membranes Moist Neck: NL Appearance and Movements; NL JVP, Trachea Midline Cardiovascular: NL Sounds; No Murmurs; No JVD, RRR, No Edema Abdominal: NL Sounds; No Tenderness; No Distention, No Hepatosplenomegaly Extremities: No Edema Neurological: Alert and Oriented x 3, - - severe cervical myelopathy with weak UE bilat - Assessment Assessment: 72 yo female with spinal stenosis and brachial plexopathy presents with sacral wound, anemia and poor nutrition possibly eligible for hospice - Plan Consult Plan (MU): Palliative Plan: Long discussion with pt and her cousin. Pt has a good understanding of her illnesses and prognosis. Currently the biggest issue is care after the hospital. Pt wants to stay home she has a large dog and would be most comfortable there the issue is finances, amy looked into it and it's $4000/ week. The other option is SNF but pt isn't excited about that option. Cousin did think using SNF short term until at home care could be arranged. Also gave them information about hospice(brochure given) although not completely sure she will qualify yet but can still send referral once she chooses a place. Ziasin has to meet with microbial specialist and acct to see about pt's finances which will determine placement. SW is going to see pt too. Pt's nutritional status has been poor and currently she is anemic. Her hope is to get better pain relief pain consult was ordered by provider. Pt did consult to transfusion. Case was discussed with nurse Springer and provider. KPS 40%, PPS 30% - Time On Unit Date of Evaluation: 06/26/18 Hospice Consult Time in: 02:30 Hospice Consult Time Out: 04:00 Hospice Consult Time Total: 90 > 50% of Time Spend In Counseling or Coordinating Care: Yes
[2018-06-26] MEDS: Senna TAB PO PRN (16:37)
[2018-06-26] MEDS: oxyCODONE/Acetamin 5/325 MG* TAB PO PRN (16:37)
[2018-06-27] MEDS: Gabapentin CAP(*) 300 MG PO SCH ×4 (00:35→16:42)
[2018-06-27] MEDS: [UNRECOGNIZED DRUG - OTHER] PO SCH (05:35)
[2018-06-27] MEDS: [UNRECOGNIZED DRUG - OTHER] PO SCH (05:35)
[2018-06-27] MEDS: Levothyroxine TAB* 112 MCG TAB PO SCH (05:38)
[2018-06-27 06:53] LABS: Hematocrit 32 % (33-41); Hemoglobin 10.6 g/dL (12.0-16.0)
[2018-06-27 07:04] LABS: Albumin 2.8 g/dL (3.2-5.2); Albumin/Globulin Ratio 0.9 (1-3); EGFR African American 91.9 (>60); Indirect Bilirubin 0.5 mg/dL (0.3-1.0); Total Bilirubin 0.6 mg/dL (0.2-1.0); Total Protein 5.8 g/dL (6.4-8.9)
[2018-06-27] MEDS: Pantoprazole TAB * 40 MG TAB PO SCH (07:48)
[2018-06-27] MEDS: ALPRAZolam TAB* 0.25 MG PO PRN (07:48)
[2018-06-27] MEDS: busPIRone TAB* 5 MG PO SCH ×3 (07:49→21:09)
[2018-06-27] MEDS: Ferrous Sulfate TAB* 325 MG PO SCH (07:49)
[2018-06-27] MEDS: Ascorbic Acid TAB* 500 MG PO SCH (07:49)
[2018-06-27] MEDS: Albuterol/Ipratropium NEB.SOL* Albuterol 2.5 MG/Ipratropium 0.5 MG 3 ML INH SCH ×3 (09:36→20:04)
[2018-06-27] MEDS: Levofloxacin 750 MG IVPREMIX(* 750 MG/150 ML BAG IVPB SCH (10:00)
[2018-06-27] MEDS: guaiFENesin ER TAB 600 MG PO SCH ×2 (10:02→21:10)
[2018-06-27] MEDS ORDERED: Morphine ORAL CONCENTRATE* 5 MG/0.25 ML ORAL.SYRIN SL PRN (10:20)
[2018-06-27] MEDS ORDERED: Vancomycin Trough Check NOTE FOLLOW UP ONE (11:30)
[2018-06-27] MEDS: Vancomycin(*) 750 MG in NS 0.9% 250 ML* 250 ML IVPB SCH (13:43)
[2018-06-27] MEDS: Morphine ORAL CONCENTRATE* 5 MG/0.25 ML ORAL.SYRIN SL PRN ×3 (13:52→21:12)
--- NOTE | 2018-06-27 14:16 | PN ---
Subjective Date of Service: 06/27/18 Interval History: Patient refused antibiotics this AM and has been despondent. Fevers noted overnight with new hypoxia. Discussed new diagnosis of PNA on CXR today with her cousin at bedside, as patient was also requesting not to have atbx. Patient states she feels weak with diffuse pain. Objective Active Medications: Albuterol/Ipratropium (Duoneb (Albuterol 2.5 Mg/Ipratropium 0.5 Mg)) 1 neb INH [id number] AWAKE [facility] Last Admin: 06/27/18 13:28 Dose: 1 neb Buspirone HCl (Buspar Tab*) 5 mg PO TID [facility] Last Admin: 06/27/18 12:13 Dose: 5 mg Ferrous Sulfate (Ferrous Sulfate Tab*) 325 mg PO DAILY [facility] Last Admin: 06/27/18 07:49 Dose: 325 mg Gabapentin (Neurontin Cap(*)) 600 mg PO Q6H [facility] Last Admin: 06/27/18 12:13 Dose: 600 mg Guaifenesin (Mucinex*) 600 mg PO BID [facility] Last Admin: 06/27/18 10:02 Dose: 600 mg Levofloxacin/Dextrose (Levaquin 750 Mg Ivpremix(*)) 750 mg in 150 mls @ 100 mls /hr IVPB Q48H [facility] Last Admin: 06/27/18 10:00 Dose: 100 mls/hr Levothyroxine Sodium (Synthroid Tab*) 112 mcg PO 0600 [facility] Last Admin: 06/27/18 05:38 Dose: 112 mcg Lorazepam (Ativan Tab(*)) 1 mg PO Q4H PRN PRN Reason: ANXIETY Morphine Sulfate (Morphine Oral Concentrate*) 10 mg SL Q2H PRN PRN Reason: PAIN Last Admin: 06/27/18 13:52 Dose: 10 mg (Juice Plus + 0.8 G) 0.8 g PO 0500 [facility] Last Admin: 06/27/18 05:35 Dose: Not Given Senna (Senokot Tab*) 1 tab PO DAILY PRN PRN Reason: CONSTIPATION Last Admin: 06/26/18 16:37 Dose: 1 tab Vital Signs - 8 hr 06/27/18 06/27/18 06/27/18 07:48 08:00 09:46 Pulse Rate 85 Respiratory 28 32 22 Rate O2 Sat by Pulse 89 Oximetry 06/27/18 06/27/18 06/27/18 11:12 12:13 12:58 Pulse Rate Respiratory 26 24 26 Rate O2 Sat by Pulse Oximetry 06/27/18 06/27/18 13:30 13:52 Pulse Rate 84 Respiratory 17 28 Rate O2 Sat by Pulse 91 Oximetry Oxygen Devices in Use Now: Nasal Cannula Appearance: sleepy, tearful Eyes: No Scleral Icterus, PERRLA Ears/Nose/Mouth/Throat: NL Teeth, Lips, Gums, Mucous Membranes Moist Neck: NL Appearance and Movements; NL JVP, Trachea Midline Respiratory: Symmetrical Chest Expansion and Respiratory Effort, - - diminished bases, no wheeze Cardiovascular: NL Sounds; No Murmurs; No JVD, RRR, No Edema Abdominal: NL Sounds; No Tenderness; No Distention Skin: No Rash or Ulcers Neurological: Alert and Oriented x 3, - - weakness bilateral UE and LE Nutrition: Taking PO's, - - poor PO intake Result Diagrams: 06/27/18 06:31 06/27/18 06:31 Microbiology and Other Data: Microbiology 06/26/18 08:50 Stool Occult Blood (ALCIDES) - Final Stool Assess/Plan/Problems-Billing Assessment: Ms. Morales is a 72 yo F with a PMH of spinal stenosis and limited mobility and intermittent bowel and bladder incontinence with plan for cervical spine surgery on 07/04/[address] Miller, hypertension, and breast cancer s/p chemoradiation and lumpectomy who was admitted on 06/24/18 with a sacral pressure ulcer, acute on chronic kidney injury, and new anemia. - Patient Problems (1) Spinal stenosis Code(s): M48.00 - SPINAL STENOSIS, SITE UNSPECIFIED SNOMED Code(s): 43758718 Comment: - With bilateral brachial plexopathy - Continue gabapentin, roxanol and ativan added today - Per Dr. Miller, patient is not a surgical candidated 2/2 sacral wound and high risk, no plan for surgery - Patient opting for hospice (2) CAP (community acquired pneumonia) Code(s): J18.9 - PNEUMONIA, UNSPECIFIED ORGANISM SNOMED Code(s): 989053347 Comment: - Suspect this was starting while patient was home which contributed to her profound weakness - Renally dosed levaquin, duonebs and flutter valve initiated - Encouraged patient to accept atbx and pulmonary toilet, as these interventions will make her breathing easier and assist in comfort. (3) Pressure ulcer Code(s): L89.90 - PRESSURE ULCER OF UNSPECIFIED SITE, UNSPECIFIED STAGE SNOMED Code(s): 486993667 Comment: - T&P Q2h - Vanco discontinued (4) Acute kidney injury superimposed on CKD Code(s): N17.9 - ACUTE KIDNEY FAILURE, UNSPECIFIED; N18.9 - CHRONIC KIDNEY DISEASE, UNSPECIFIED SNOMED Code(s): 81303693 Comment: - Baseline CKD Stage 3 with FARIDEH (5) Anemia Code(s): D64.9 - ANEMIA, UNSPECIFIED SNOMED Code(s): 800449643 Comment: - Likely r/t illness and dilution - Transfused one unit yesterday, patient appears more comfortable - Stool occult negative - H&H stable after transfusion, continue O2 PRN (6) Anxiety Code(s): F41.9 - ANXIETY DISORDER, UNSPECIFIED SNOMED Code(s): 17622380 Comment: - Patient having a great deal of stress and anxiety regarding current health status and is refusing care for new diagnosis of PNA/CAP, keesp statin "I know I 'm going to here" - Will continue morphine and ativan PRN with buspar - Chaplaon consulted - Allowed patient to visit with her dog in agustín chair today which seemed to improve her mood - Continue reassurance and supportive care (7) Elevated LFTs Code(s): R94.5 - ABNORMAL RESULTS OF LIVER FUNCTION STUDIES SNOMED Code(s): 928915275 Comment: - Had some improvment yesterday, however considering that patient is electing hospice, will not continue to trend (8) Hypertension Code(s): I10 - ESSENTIAL (PRIMARY) HYPERTENSION SNOMED Code(s): 29355084 Comment: - hypotensive, hold meds (9) Hypothyroidism Code(s): E03.9 - HYPOTHYROIDISM, UNSPECIFIED SNOMED Code(s): 98231113 Comment: - Continue levothyroxine (10) DVT prophylaxis Code(s): OOJ0427 - SNOMED Code(s): 316128327 Comment: - Heparin SQ discontinued in light of low H&H (11) DNR (do not resuscitate) Comment: - Limited interventions on MOLST which was evaluated with palliative care Status and Disposition: Inpatient. Patient's condition is severe and she is currently non-operative. As suspected, patient continues to decline and now has new bilateral PNA. Discussed at length with patient's HC proxy and Dr. Dan. Patient will elect hospice, however, [facility]. Will make referral to [facility] with hospice sign on. Placed order for [facility].
[2018-06-27] MEDS: Methadone TAB* 5 MG PO SCH (17:53)
[2018-06-27] MEDS ORDERED: Acetaminophen TAB* 325 MG PO PRN (21:10)
[2018-06-27] MEDS: LORazepam TAB(*) 1 MG PO PRN (21:10)
[2018-06-27] MEDS ORDERED: Ondansetron INJ* 2 MG/ML VIAL IV PRN (21:10)
[2018-06-27] MEDS: diPHENhydraMINE PO* 25 MG PO PRN (21:29)
--- NOTE | 2018-06-27 21:44 | CONS ---
CONSULTATION NOTE: DATE OF CONSULT: 06/27/18 REQUESTING PROVIDER: Ame Arvizu NP. REASON FOR CONSULT: Pain down arms. HISTORY OF PRESENT ILLNESS: Loren Morales is a 72-year-old female. According to the patient, she developed weakness in her arms about 1-1/2 to 2 years ago. She initially did not want to do anything, but then the pain became so severe she sought out treatment. She was eventually referred to Dr. Maty Hess for EMG and nerve conduction studies. She was diagnosed with a bilateral brachial plexopathy of unknown etiology. She was referred to Dr. Robert Miller. Dr. Miller ordered MRI of her cervical spine in June 2017. She told me she was told she did not need surgery, although did have disk osteophyte complexes flattening the cord. She continued to have weakness and pain in her arms. She was put on gabapentin. The patient followed up with Dr. Miller and had a new MRI of her lumbar spine this past June. She was having trouble with walking at that point. She had myelomalacia on the spinal cord as well as having multiple degenerative changes including retrolisthesis of C3 on C4 and C5 on C6 and C6 on C7 as well as having severe bilateral neural foraminal narrowing at multiple levels - C3-C4, C4- C5, C5-C6, C6-C7, and C7- T1. There was myelomalacia of the cord at C3-4. The patient, unfortunately, at that point was not ambulating and she developed a bed sore over her coccyx. She also had developed urinary retention. She had had an MRI of her lumbar spine back in May, which did show severe spinal cord narrowing. The patient was brought to the emergency room by friends because she could not get out of a chair. She had developed a pressure ulcer to her buttocks and was having bladder incontinence for the past month. She was admitted with a sacral pressure ulcer. She has had a great deal of difficulty with pain since she has been in. She is on gabapentin 600 mg every 6 hours as well as morphine 10 mg sublingually every 2 hours as needed. I am asked to see her in consultation. PAST MEDICAL HISTORY: Significant for hypothyroidism, hypertension, breast cancer, hyperlipidemia, depression as well as the aforementioned brachial plexopathy and spinal stenosis, now with cervical myelopathy. CURRENT MEDICATIONS: Include: 1. Albuterol inhaler. 2. BuSpar. 3. Neurontin 600 mg q.6. 4. She is on Levaquin for pneumonia. 5. Synthroid. 6. Ativan. 7. Morphine. 8. ConcenTrace. 9. Senokot. ALLERGIES: KEFLEX and NSAIDS. SOCIAL HISTORY: She lives alone. She has no family in the area. She is a nonsmoker, nondrinker. She has a cousin who is up from [place] to help assist her with getting her home with hospice or transferring her to a hospice residence. She did have a palliative care consult yesterday. REVIEW OF SYSTEMS: The patient does not report any shortness of breath and is leery of taking opioids. PHYSICAL EXAM: The patient's temperature is 100.3, blood pressure is 100/57, pulse is 83, respirations 28. She is wearing oxygen. HEENT: Her extraocular movements were intact. Her lungs sounded mostly clear. Heart sounds were regular, S1 and S2 audible. Abdomen is soft and nontender. Extremities: She had increased tone in her upper extremities with obvious muscle wasting bilaterally. She had atrophy in her hands. Her lower extremities also had slightly increased tone. Neurologic: She was awake, alert, oriented to herself. Muscle strength in her arms was no better than 3/5. Her legs were about 3/5 as well. Her functional exam, she is dependent in transfers. ASSESSMENT: 1. Cervical myelopathy with quadriparesis. 2. Brachial plexopathy. PLAN: The patient has significant pain in her arms. She is already on high- dose opioids as well as gabapentin. At this point, we could add low-dose Duloxetine. We could consider adding low-dose methadone to provide her with pain control that is a little more long acting. I will write for methadone 2.5 mg twice a day along with Narcan. I will follow up with the patient tomorrow. [id number]/[facility] #: [id number] MTDD
[2018-06-28] MEDS: Albuterol/Ipratropium NEB.SOL* Albuterol 2.5 MG/Ipratropium 0.5 MG 3 ML INH SCH ×4 (00:54→20:12)
[2018-06-28] MEDS: Gabapentin CAP(*) 300 MG PO SCH ×5 (01:06→21:37)
[2018-06-28] MEDS: [UNRECOGNIZED DRUG - OTHER] PO SCH (05:40)
[2018-06-28] MEDS: Levothyroxine TAB* 112 MCG TAB PO SCH (06:01)
[2018-06-28] MEDS: Morphine ORAL CONCENTRATE* 5 MG/0.25 ML ORAL.SYRIN SL PRN (06:02)
[2018-06-28] MEDS: Methadone TAB* 5 MG PO SCH (06:02)
--- NOTE | 2018-06-28 10:40 | PN ---
Subjective Date of Service: 06/28/18 Interval History: Patient seen and examined. States she had intense itching after methadone last night and this morning. Denies SOB, no chest pain, no fever or chills. Remains on O2. Seems in much better spirits after seeing her doge yesterday and now that she is in a private room. Objective Active Medications: Acetaminophen (Tylenol Tab*) 650 mg PO Q4H PRN PRN Reason: FEVER/HEADACHE Last Admin: 06/27/18 21:24 Dose: 650 mg Albuterol/Ipratropium (Duoneb (Albuterol 2.5 Mg/Ipratropium 0.5 Mg)) 1 neb INH [id number] AWAKE [facility] Last Admin: 06/28/18 07:35 Dose: 1 neb Buspirone HCl (Buspar Tab*) 5 mg PO TID [facility] Last Admin: 06/27/18 21:09 Dose: 5 mg Diphenhydramine HCl (Benadryl Po*) 25 mg PO Q6H PRN PRN Reason: PRURITIS Last Admin: 06/27/18 21:29 Dose: 25 mg Duloxetine HCl (Cymbalta Cap*) 20 mg PO DAILY [facility] Ferrous Sulfate (Ferrous Sulfate Tab*) 325 mg PO DAILY [facility] Last Admin: 06/27/18 07:49 Dose: 325 mg Gabapentin (Neurontin Cap(*)) 600 mg PO Q6H [facility] Last Admin: 06/28/18 06:01 Dose: 600 mg Guaifenesin (Mucinex*) 600 mg PO BID [facility] Last Admin: 06/27/18 21:10 Dose: Not Given Levofloxacin/Dextrose (Levaquin 750 Mg Ivpremix(*)) 750 mg in 150 mls @ 100 mls /hr IVPB Q48H [facility] Last Admin: 06/27/18 10:00 Dose: 100 mls/hr Levothyroxine Sodium (Synthroid Tab*) 112 mcg PO 0600 [facility] Last Admin: 06/28/18 06:01 Dose: 112 mcg Lorazepam (Ativan Tab(*)) 1 mg PO Q4H PRN PRN Reason: ANXIETY Last Admin: 06/27/18 21:10 Dose: 1 mg Morphine Sulfate (Morphine Oral Concentrate*) 10 mg SL Q2H PRN PRN Reason: PAIN Last Admin: 06/27/18 21:12 Dose: 10 mg (Juice Plus + 0.8 G) 0.8 g PO 0500 [facility] Last Admin: 06/28/18 05:40 Dose: Not Given Ondansetron HCl (Zofran Inj*) 4 mg IV Q6H PRN PRN Reason: NAUSEA Senna (Senokot Tab*) 1 tab PO DAILY PRN PRN Reason: CONSTIPATION Last Admin: 06/26/18 16:37 Dose: 1 tab Vital Signs - 8 hr 06/28/18 06/28/18 06/28/18 03:37 04:08 06:01 Pulse Rate Respiratory 20 14 16 Rate O2 Sat by Pulse Oximetry 06/28/18 06/28/18 06/28/18 06:02 07:41 09:43 Pulse Rate 88 Respiratory 16 16 20 Rate O2 Sat by Pulse 94 Oximetry Oxygen Devices in Use Now: Nasal Cannula Appearance: alert, sometimes tearful Eyes: No Scleral Icterus, PERRLA Ears/Nose/Mouth/Throat: NL Teeth, Lips, Gums, Mucous Membranes Moist Neck: NL Appearance and Movements; NL JVP, Trachea Midline Respiratory: Symmetrical Chest Expansion and Respiratory Effort, Clear to Auscultation Cardiovascular: NL Sounds; No Murmurs; No JVD, RRR Abdominal: NL Sounds; No Tenderness; No Distention Extremities: No Edema, No Clubbing, Cyanosis Skin: - - sacral wound per Wound care note Neurological: Alert and Oriented x 3 Nutrition: Taking PO's Result Diagrams: 06/27/18 06:31 06/27/18 06:31 Microbiology and Other Data: Microbiology 06/26/18 08:50 Stool Occult Blood (ALCIDES) - Final Stool Assess/Plan/Problems-Billing Assessment: Ms. Morales is a 72 yo F with a PMH of spinal stenosis and limited mobility and intermittent bowel and bladder incontinence with plan for cervical spine surgery on 07/04/[address] Miller, hypertension, and breast cancer s/p chemoradiation and lumpectomy who was admitted on 06/24/18 with a sacral pressure ulcer, acute on chronic kidney injury, and new anemia. - Patient Problems (1) Spinal stenosis Code(s): M48.00 - SPINAL STENOSIS, SITE UNSPECIFIED SNOMED Code(s): 97957470 Comment: - With bilateral, non-operative brachial plexopathy and myelopathy with quadriparesis - Continue gabapentin, roxanol and ativan - Dr. Camacho started methadone last night, however, patient is having intense itching after administration, will DC and start MScontin or fentanyl patch (discussed with Dr. Camacho) - Pending hospice referral, placed on Comfort Care pending disposition (2) CAP (community acquired pneumonia) Code(s): J18.9 - PNEUMONIA, UNSPECIFIED ORGANISM SNOMED Code(s): 898883957 Comment: - Suspect this was starting while patient was home which contributed to her profound weakness - Renally dosed levaquin, duonebs and flutter valve initiated - Encouraged patient to accept atbx and pulmonary toilet, as these interventions will make her breathing easier and assist in comfort. (3) Pressure ulcer Code(s): L89.90 - PRESSURE ULCER OF UNSPECIFIED SITE, UNSPECIFIED STAGE SNOMED Code(s): 286780539 Comment: - T&P Q2h - Vanco discontinued - local wound care per Wound Care CUSTOMER SERVICE SALES ASSOCIATE recs (4) Anxiety Code(s): F41.9 - ANXIETY DISORDER, UNSPECIFIED SNOMED Code(s): 16840316 Comment: - Mood improved since room change and visit with her dog - Will continue morphine and ativan PRN with buspar - Jewelry Sales Representative consult appreciated - Supportive care (5) DNR (do not resuscitate) Comment: - Limited interventions on MOLST which was evaluated with palliative care Status and Disposition: Inpatient. Patient's condition is severe and she is currently non-operative. As suspected, patient continues to decline with sacral wound and bilateral PNA and inability to feed herself and perform ADLs 2/2 quadriparesis. Referral made to [facility] with hospice sign on, pending acceptance. Placed on Comfort Care.
[2018-06-28] MEDS: Ferrous Sulfate TAB* 325 MG PO SCH (11:00)
[2018-06-28] MEDS: guaiFENesin ER TAB 600 MG PO SCH ×2 (11:01→21:38)
[2018-06-28] MEDS: busPIRone TAB* 5 MG PO SCH ×3 (11:01→21:36)
[2018-06-28] MEDS: DULoxetine DR CAP* 20 MG CAP.DR PO SCH (11:02)
[2018-06-28] MEDS: Morphine TAB Extended Release (*) 15 MG TAB.ER PO SCH ×2 (11:06→21:37)
--- NOTE | 2018-06-28 11:37 | CONSULT ---
Subjective Date of Service: 06/28/18 Interval History: Ms. Morales is a 72 yo female with PMH significant for hypothyroidism, HTN, breast cancer, HLD, depression, cervical spine spondylosis with myelopathy, lumbar spinal stenosis with intermitted bowel and bladder incontinence, brachial plexopathy, and anxiety. Ms. Morales developed an unstagebale sacral pressure injury and was seen by her PCP, they recommended applying silvedene to the area of eschar. She then became weak and was unable to get out of her recliner chair at home. She presented to the emergency room with concern of worsening sacral pressure injury. Patient see and examined at bedside. Family History: Unchanged from Admission Social History: Unchanged from Admission Past Medical History: Unchanged from Admission Review of Systems - Measurements Intake and Output: Intake and Output Last 24 Hours 06/26/18 06/27/18 06/28/18 06/29/18 06:59 06:59 06:59 06:59 Intake Total 4166 3502 2165 720 Output Total 2525 1550 975 400 Balance 1641 1952 1190 320 Intake: IV Fluids 3286 2962 1165 ABX - VANCOMYCIN 250 Levofloxacin 150 NS (0.9%) 3036 2942 1015 blood 20 IVPB 300 blood 300 Oral 862 671 7534 720 Output: Guzman 2525 1550 975 400 Other: Estimated Void Large Medium # Bowel Movements 0 0 0 Estimated Stool Amount Small # Voids 2 1 - Review of Systems Constitutional Symptoms: Negative: Fever, Other - Chills Dermatology: Positive: Other - Pressure wound Endocrinology: Negative: Diabetes Mellitus Objective Active Medications: Acetaminophen (Tylenol Tab*) 650 mg PO Q4H PRN Reason: FEVER/HEADACHE Albuterol/Ipratropium (Duoneb (Albuterol 2.5 Mg/Ipratropium 0.5 Mg)) 1 neb INH [id number] AWAKE [facility] Buspirone HCl (Buspar Tab*) 5 mg PO TID [facility] Diphenhydramine HCl (Benadryl Po*) 25 mg PO Q6H PRN Reason: PRURITIS Duloxetine HCl (Cymbalta Cap*) 20 mg PO DAILY [facility] Ferrous Sulfate (Ferrous Sulfate Tab*) 325 mg PO DAILY [facility] Gabapentin (Neurontin Cap(*)) 600 mg PO Q6H [facility] Guaifenesin (Mucinex*) 600 mg PO BID [facility] Levofloxacin/Dextrose (Levaquin 750 Mg Ivpremix(*)) 750 mg in 150 mls @ 100 mls /hr IVPB Q48H [facility] Levothyroxine Sodium (Synthroid Tab*) 112 mcg PO 0600 [facility] Lorazepam (Ativan Tab(*)) 1 mg PO Q4H PRN Reason: ANXIETY Morphine Sulfate (Ms Contin(*)) 15 mg PO Q12HR [facility] Morphine Sulfate (Morphine Oral Concentrate*) 10 mg SL Q2H PRN Reason: breakthrough pain (Juice Plus + 0.8 G) 0.8 g PO 0500 [facility] Ondansetron HCl (Zofran Inj*) 4 mg IV Q6H PRN Reason: NAUSEA Senna (Senokot Tab*) 1 tab PO DAILY PRN Reason: CONSTIPATION Vital Signs - 8 hr 06/28/18 06/28/18 06/28/18 03:37 04:08 06:01 Pulse Rate Respiratory 20 14 16 Rate O2 Sat by Pulse Oximetry 06/28/18 06/28/18 06/28/18 06:02 07:41 09:43 Pulse Rate 88 Respiratory 16 16 20 Rate O2 Sat by Pulse 94 Oximetry 06/28/18 06/28/18 11:00 11:06 Pulse Rate Respiratory 18 18 Rate O2 Sat by Pulse Oximetry Oxygen Devices in Use Now: Nasal Cannula Appearance: NAD, laying in bed Ears/Nose/Mouth/Throat: Mucous Membranes Moist Skin: - - See skin note below Neurological: Alert and Oriented x 3 Result Diagrams: 06/27/18 06:31 06/27/18 06:31 Additional Lab and Data: Laboratory Tests 06/25/18 06:17 Prealbumin 13 L Microbiology and Other Data: Microbiology 06/26/18 08:50 Stool Occult Blood (ALCIDES) - Final Stool Skin Deviation Note - Skin Deviation Findings Sacrum - Large center area with dark discoloration, measures 4.5 cm x 4 cm. There is an area within this area that is a dry dark eschar, measuring 2 cm x 1.5 cm. The total area of the wound measures 6.5 cm x 5.2 cm x 0.1 cm. The surrounding skin is a dark purplish discoloration and intact. There is a small amount of drainage from the wound. Assessment/Plan: Ms. Morales is a 72 yo F with a PMH of spinal stenosis and limited mobility and intermittent bowel and bladder incontinence with plan for cervical spine surgery on 07/04/[address] Miller (surgery is on hold at this time), hypertension, and breast cancer s/p chemoradiation and lumpectomy who was admitted on 06/24/18 with a sacral pressure ulcer, acute on chronic kidney injury , and new anemia. 1. Unstageable sacral pressure injury. There is also moisture associated skin injury to the area. (It's to note that the wound on admission also appeared to have a deep tissue injury, see admission photographs). She was seen in consultation by Dr. Ojeda, it was felt that she didn't require sharp debridement at this time. Recommend barrier cream. Frequent turning and repositioning. Its to note that at this time, the patient is planning on pursuing palliative care/Hospice. 2. Spinal stenosis with limited mobility and intermittent bowel and bladder incontinence. Management per neurosurgery and primary medicine team. She has a urinary catheter in place. 3. Malnutrition. Prealbumin was 13 on admission. She has difficulty feeding self due to brachial plexopathy. Dietitian following, she drinking ensure. 4. Diet. Regular diet. 5. Code status. DNR. 6. Disposition. Disposition per primary medicine team. TIME SPENT: Time for this wound consultation was 25 minutes and 15 minutes was spent with the patient discussing past medical history, assessing, measuring and photographing the wound. Wound Problem/Plan Is Patient a Wound Clinic Patient: No Attending: Danay Mittal
[2018-06-28] MEDS ORDERED: Morphine ORAL CONCENTRATE* 5 MG/0.25 ML ORAL.SYRIN SL PRN (14:00)
[2018-06-28] MEDS: LORazepam TAB(*) 1 MG PO PRN (14:25)
[2018-06-28] MEDS: diPHENhydraMINE PO* 25 MG PO PRN (15:46)
[2018-06-29] MEDS: Albuterol/Ipratropium NEB.SOL* Albuterol 2.5 MG/Ipratropium 0.5 MG 3 ML INH SCH ×4 (00:55→19:19)
[2018-06-29] MEDS: Gabapentin CAP(*) 300 MG PO SCH ×4 (05:36→22:16)
[2018-06-29] MEDS: [UNRECOGNIZED DRUG - OTHER] PO SCH (05:37)
[2018-06-29] MEDS: Levothyroxine TAB* 112 MCG TAB PO SCH (05:58)
[2018-06-29] MEDS: busPIRone TAB* 5 MG PO SCH ×3 (09:15→22:17)
[2018-06-29] MEDS: DULoxetine DR CAP* 20 MG CAP.DR PO SCH (09:16)
[2018-06-29] MEDS: guaiFENesin ER TAB 600 MG PO SCH ×2 (09:17→22:17)
[2018-06-29] MEDS: Levofloxacin 750 MG IVPREMIX(* 750 MG/150 ML BAG IVPB SCH (09:17)
[2018-06-29] MEDS: Ferrous Sulfate TAB* 325 MG PO SCH (09:17)
[2018-06-29] MEDS: Morphine TAB Extended Release (*) 15 MG TAB.ER PO SCH ×2 (09:17→22:16)
--- NOTE | 2018-06-29 10:46 | PN ---
Subjective Date of Service: 06/29/18 Interval History: Patient seen and examined. No acute overnight events. Patient complains of fatigue and intermittent pain with better control today. Cousin at bedside, they are arranging plans with [facility]. Family History: Unchanged from Admission Social History: Unchanged from Admission Past Medical History: Unchanged from Admission Objective Active Medications: Acetaminophen (Tylenol Tab*) 650 mg PO Q4H PRN PRN Reason: FEVER/HEADACHE Last Admin: 06/27/18 21:24 Dose: 650 mg Albuterol/Ipratropium (Duoneb (Albuterol 2.5 Mg/Ipratropium 0.5 Mg)) 1 neb INH [id number] AWAKE [facility] Last Admin: 06/29/18 07:39 Dose: 1 neb Buspirone HCl (Buspar Tab*) 5 mg PO TID [facility] Last Admin: 06/29/18 09:15 Dose: 5 mg Diphenhydramine HCl (Benadryl Po*) 25 mg PO Q6H PRN PRN Reason: PRURITIS Last Admin: 06/28/18 15:46 Dose: 25 mg Duloxetine HCl (Cymbalta Cap*) 20 mg PO DAILY [facility] Last Admin: 06/29/18 09:16 Dose: 20 mg Ferrous Sulfate (Ferrous Sulfate Tab*) 325 mg PO DAILY [facility] Last Admin: 06/29/18 09:17 Dose: 325 mg Gabapentin (Neurontin Cap(*)) 600 mg PO Q6H [facility] Last Admin: 06/29/18 05:36 Dose: 600 mg Guaifenesin (Mucinex*) 600 mg PO BID [facility] Last Admin: 06/29/18 09:17 Dose: 600 mg Levofloxacin/Dextrose (Levaquin 750 Mg Ivpremix(*)) 750 mg in 150 mls @ 100 mls /hr IVPB Q48H [facility] Last Admin: 06/29/18 09:17 Dose: 100 mls/hr Levothyroxine Sodium (Synthroid Tab*) 112 mcg PO 0600 [facility] Last Admin: 06/29/18 05:58 Dose: 112 mcg Lorazepam (Ativan Tab(*)) 1 mg PO Q4H PRN PRN Reason: ANXIETY Last Admin: 06/28/18 14:25 Dose: 1 mg Morphine Sulfate (Ms Contin(*)) 15 mg PO Q12HR [facility] Last Admin: 06/29/18 09:17 Dose: 15 mg Morphine Sulfate (Morphine Oral Concentrate*) 10 mg SL Q2H PRN PRN Reason: breakthrough pain (Juice Plus + 0.8 G) 0.8 g PO 0500 [facility] Last Admin: 06/29/18 05:37 Dose: Not Given Ondansetron HCl (Zofran Inj*) 4 mg IV Q6H PRN PRN Reason: NAUSEA Pharmacy Profile Note (Ppd Reading Note*) 1 note .SEE ORDER .PPD READING ONE Stop: 07/03/18 08:01 Senna (Senokot Tab*) 1 tab PO DAILY PRN PRN Reason: CONSTIPATION Last Admin: 06/26/18 16:37 Dose: 1 tab Tuberculin PPD (Tuberculin Ppd Test Dose*) 5 tu INTRADERM ONCE ONE Stop: 07/01/18 08:01 Vital Signs - 8 hr 06/29/18 06/29/18 06/29/18 05:36 07:41 09:17 Pulse Rate 80 Respiratory 18 16 18 Rate O2 Sat by Pulse 96 Oximetry Oxygen Devices in Use Now: Nasal Cannula Appearance: alert, frail, NAD Eyes: No Scleral Icterus, PERRLA Ears/Nose/Mouth/Throat: NL Teeth, Lips, Gums, Mucous Membranes Moist Neck: NL Appearance and Movements; NL JVP, Trachea Midline Respiratory: Symmetrical Chest Expansion and Respiratory Effort, - - bilateral crackles Cardiovascular: NL Sounds; No Murmurs; No JVD, RRR, No Edema Abdominal: NL Sounds; No Tenderness; No Distention Extremities: No Edema, No Clubbing, Cyanosis Skin: - - sacral wound, please refer to wound care note for documentation Neurological: Alert and Oriented x 3, - - quadriparesis at baseline Nutrition: - - poor intake Result Diagrams: 06/27/18 06:31 06/27/18 06:31 Microbiology and Other Data: Microbiology 06/26/18 08:50 Stool Occult Blood (ALCIDES) - Final Stool Assess/Plan/Problems-Billing Assessment: Ms. Morales is a 72 yo F with a PMH of spinal stenosis and limited mobility and intermittent bowel and bladder incontinence with plan for cervical spine surgery on 07/04/[address] Miller, hypertension, and breast cancer s/p chemoradiation and lumpectomy who was admitted on 06/24/18 with a sacral pressure ulcer, acute on chronic kidney injury, new anemia and bilateral PNA. - Patient Problems (1) Spinal stenosis Code(s): M48.00 - SPINAL STENOSIS, SITE UNSPECIFIED SNOMED Code(s): 05099993 Comment: - With bilateral, non-operative brachial plexopathy and myelopathy with quadriparesis - Continue gabapentin, roxanol and ativan - Added MS contin yesterday for basal pain control with roxanol for breakthrough - Plan for hospice sign on at [facility] (2) CAP (community acquired pneumonia) Code(s): J18.9 - PNEUMONIA, UNSPECIFIED ORGANISM SNOMED Code(s): 695724137 Comment: - Suspect this was starting while patient was home which contributed to her profound weakness - Renally dosed levaquin, duonebs and flutter valve initiated - Encouraged patient to accept atbx and pulmonary toilet, as these interventions will make her breathing easier and assist in comfort. (3) Pressure ulcer Code(s): L89.90 - PRESSURE ULCER OF UNSPECIFIED SITE, UNSPECIFIED STAGE SNOMED Code(s): 635218290 Comment: - T&P Q2h - Vanco discontinued - local wound care per Wound Care ADVANCED NURSING PROFESSOR recs (4) Anxiety Code(s): F41.9 - ANXIETY DISORDER, UNSPECIFIED SNOMED Code(s): 21518927 Comment: - Mood improved since room change and visit with her dog - Will continue morphine and ativan PRN with buspar - Cook Specialty consult appreciated - Supportive care (5) DNR (do not resuscitate) Comment: - Limited interventions on MOLST which was evaluated with palliative care Status and Disposition: Inpatient. Patient's condition is severe and she is currently non-operative. Patient continues to decline with sacral wound and bilateral PNA and inability to feed herself and perform ADLs 2/2 quadriparesis. Plan for discharge to [facility] Tuesday with hospice sign on, will need PPD Tuesday with negative read in order to be transferred to the facility. Placed on Comfort Care.
[2018-06-29] MEDS: LORazepam TAB(*) 1 MG PO PRN (18:24)
[2018-06-29] MEDS ORDERED: Albuterol 2.5 MG/3 ML NEB.SOL* (0.083%) INH PRN (19:51)
[2018-06-30] MEDS: [UNRECOGNIZED DRUG - OTHER] PO SCH (05:12)
[2018-06-30] MEDS: Gabapentin CAP(*) 300 MG PO SCH ×4 (05:33→21:24)
[2018-06-30] MEDS: Levothyroxine TAB* 112 MCG TAB PO SCH (05:33)
[2018-06-30] MEDS: DULoxetine DR CAP* 20 MG CAP.DR PO SCH (10:49)
[2018-06-30] MEDS: busPIRone TAB* 5 MG PO SCH ×3 (10:50→21:25)
[2018-06-30] MEDS: Ferrous Sulfate TAB* 325 MG PO SCH (10:50)
[2018-06-30] MEDS: guaiFENesin ER TAB 600 MG PO SCH ×2 (10:50→21:25)
[2018-06-30] MEDS: Morphine TAB Extended Release (*) 15 MG TAB.ER PO SCH ×2 (10:50→21:25)
--- NOTE | 2018-06-30 17:40 | PN ---
Subjective Date of Service: 06/30/18 Interval History: Pt states that her sacral wound is feeling better with lotion. She has occasional b/l UE pain that she describes as shocks or zaps. She believes that her pain is continuing to be better controlled, although she underrates her pain when asked, stating she does not want to receive too much morphine. Pt has poor PO intake. Family History: Unchanged from Admission Social History: Unchanged from Admission Past Medical History: Unchanged from Admission Objective Active Medications: Acetaminophen (Tylenol Tab*) 650 mg PO Q4H PRN Albuterol (Ventolin 2.5 Mg/3 Ml Neb.Nia*) 2.5 mg INH Q2H PRN Buspirone HCl (Buspar Tab*) 5 mg PO TID GUTIERREZ Diphenhydramine HCl (Benadryl Po*) 25 mg PO Q6H PRN Duloxetine HCl (Cymbalta Cap*) 20 mg PO DAILY GUTIERRZE Ferrous Sulfate (Ferrous Sulfate Tab*) 325 mg PO DAILY GUTIERREZ Gabapentin (Neurontin Cap(*)) 600 mg PO Q6H GUTIERREZ Guaifenesin (Mucinex*) 600 mg PO BID GUTIERREZ Levofloxacin/Dextrose (Levaquin 750 Mg Ivpremix(*)) 750 mg in 150 mls @ 100 mls /hr IVPB Q48H GUTIERREZ Levothyroxine Sodium (Synthroid Tab*) 112 mcg PO 0600 GUTIERREZ Lorazepam (Ativan Tab(*)) 1 mg PO Q4H PRN Morphine Sulfate (Ms Contin(*)) 15 mg PO Q12HR GUTIERREZ Morphine Sulfate (Morphine Oral Concentrate*) 10 mg SL Q2H PRN (Juice Plus + 0.8 G) 0.8 g PO 0500 GUTIERREZ Ondansetron HCl (Zofran Inj*) 4 mg IV Q6H PRN Pharmacy Profile Note (Ppd Reading Note*) 1 note .SEE ORDER .PPD READING ONE Senna (Senokot Tab*) 1 tab PO DAILY PRN Tuberculin PPD (Tuberculin Ppd Test Dose*) 5 tu INTRADERM ONCE ONE Vital Signs - 8 hr Vital Signs: Temp Pulse Resp BP Pulse Ox 97.8 F 86 16 95/55 94 06/29/18 13:25 06/29/18 19:20 06/30/18 12:05 06/29/18 13:25 06/29/18 19:20 Oxygen Devices in Use Now: Nasal Cannula Appearance: Pt is laying in bed. She is ill-appearing. She is appropriate and cooperative. She is in no acute distress. Eyes: No Scleral Icterus, PERRLA Ears/Nose/Mouth/Throat: NL Teeth, Lips, Gums, Clear Oropharnyx, - - Dry mucous membranes Neck: NL Appearance and Movements; NL JVP, Trachea Midline Respiratory: Symmetrical Chest Expansion and Respiratory Effort - Rhonchi throughout b/l lungs Cardiovascular: NL Sounds; No Murmurs; No JVD, RRR Abdominal: NL Sounds; No Tenderness; No Distention, No Hepatosplenomegaly Extremities: No Clubbing, Cyanosis Skin: - - Sacral wound Neurological: Alert and Oriented x 3 Result Diagrams: 06/27/18 06:31 06/27/18 06:31 Microbiology and Other Data: Microbiology 06/26/18 08:50 Stool Occult Blood (ALCIDES) - Final Stool Assess/Plan/Problems-Billing Assessment: Ms. Morales is a 72 yo F with a PMH of spinal stenosis and limited mobility and intermittent bowel and bladder incontinence with plan for cervical spine surgery on 07/04/[address] Miller, hypertension, and breast cancer s/p chemoradiation and lumpectomy who was admitted on 06/24/18 with a sacral pressure ulcer, acute on chronic kidney injury, new anemia and bilateral PNA. - Patient Problems (1) Spinal stenosis Comment: -With bilateral, non-operative brachial plexopathy and myelopathy with quadriparesis -Continue gabapentin, roxanol and ativan -Added MS contin yesterday for basal pain control with roxanol for breakthrough -Plan for hospice sign on at [facility] (2) CAP (community acquired pneumonia) Comment: -Suspect this was starting while patient was home which contributed to her profound weakness -Renally dosed levaquin, duonebs and flutter valve initiated -Encouraged patient to accept atbx and pulmonary toilet, as these interventions will make her breathing easier and assist in comfort. (3) Pressure ulcer Comment: -T&P Q2h -Vanco discontinued -Local wound care per Wound Care ORDER PLANNER recs (4) Anxiety Comment: -Mood improved since room change and visit with her dog -Will continue morphine and ativan PRN with buspar -Fermenter consult appreciated -Supportive care (5) DNR (do not resuscitate) Comment: -Limited interventions on MOLST which was evaluated with palliative care Status and Disposition: Inpatient. Patient's condition is severe and she is currently non-operative. Patient continues to decline with sacral wound and bilateral PNA and inability to feed herself and perform ADLs 2/2 quadriparesis. Plan for discharge to [facility] Tuesday with hospice sign on, will need PPD Tuesday with negative read in order to be transferred to the facility. Placed on Comfort Care.
[2018-06-30] MEDS: Senna TAB PO PRN (21:32)
[2018-07-01] MEDS: Morphine ORAL CONCENTRATE* 5 MG/0.25 ML ORAL.SYRIN SL PRN ×10 (00:18→22:15)
[2018-07-01] MEDS: [UNRECOGNIZED DRUG - OTHER] PO SCH (05:03)
[2018-07-01] MEDS: Gabapentin CAP(*) 300 MG PO SCH ×4 (05:03→23:13)
[2018-07-01] MEDS: Levothyroxine TAB* 112 MCG TAB PO SCH (05:04)
[2018-07-01] MEDS ORDERED: PPD test dose* 5 TU/0.1 ML TEST (*USE PPD ORDER SET*) INTRADERM ONE (08:00)
[2018-07-01] MEDS: DULoxetine DR CAP* 20 MG CAP.DR PO SCH (08:18)
[2018-07-01] MEDS: busPIRone TAB* 5 MG PO SCH ×3 (08:18→19:14)
[2018-07-01] MEDS: guaiFENesin ER TAB 600 MG PO SCH ×2 (08:18→19:14)
[2018-07-01] MEDS: Ferrous Sulfate TAB* 325 MG PO SCH (08:18)
[2018-07-01] MEDS: Morphine TAB Extended Release (*) 15 MG TAB.ER PO SCH ×2 (08:18→19:14)
[2018-07-01] MEDS: Levofloxacin 750 MG IVPREMIX(* 750 MG/150 ML BAG IVPB SCH (08:22)
[2018-07-01 11:23] VITALS: BP 91/55
--- NOTE | 2018-07-01 17:37 | PN ---
Subjective Date of Service: 07/01/18 Interval History: Pt is weepy today with intermittent pain. She believes pain is well controlled with medication, but she may be waiting too long to request pain control. She denies SOB, cough. R heel with discoloration- will continue to elevate it with pillow. Family History: Unchanged from Admission Social History: Unchanged from Admission Past Medical History: Unchanged from Admission Objective Active Medications: Acetaminophen (Tylenol Tab*) 650 mg PO Q4H PRN Albuterol (Ventolin 2.5 Mg/3 Ml Neb.Nia*) 2.5 mg INH Q2H PRN Buspirone HCl (Buspar Tab*) 5 mg PO TID GUTIERREZ Diphenhydramine HCl (Benadryl Po*) 25 mg PO Q6H PRN Duloxetine HCl (Cymbalta Cap*) 20 mg PO DAILY GUTIERREZ Ferrous Sulfate (Ferrous Sulfate Tab*) 325 mg PO DAILY GUTIERREZ Gabapentin (Neurontin Cap(*)) 600 mg PO Q6H GUTIERREZ Guaifenesin (Mucinex*) 600 mg PO BID GUTIERREZ Levofloxacin/Dextrose (Levaquin 750 Mg Ivpremix(*)) 750 mg in 150 mls @ 100 mls /hr IVPB Q48H GUTIERREZ Levothyroxine Sodium (Synthroid Tab*) 112 mcg PO 0600 GUTIERREZ Lorazepam (Ativan Tab(*)) 1 mg PO Q4H PRN Morphine Sulfate (Ms Contin(*)) 15 mg PO Q12HR GUTIERREZ Morphine Sulfate (Morphine Oral Concentrate*) 15 mg SL Q1H PRN (Juice Plus + 0.8 G) 0.8 g PO 0500 GUTIERREZ Ondansetron HCl (Zofran Inj*) 4 mg IV Q6H PRN Pharmacy Profile Note (Ppd Reading Note*) 1 note .SEE ORDER .PPD READING ONE Senna (Senokot Tab*) 1 tab PO DAILY PRN Vital Signs: Temp Pulse Resp BP Pulse Ox 98.1 F 65 16 91/55 98 07/01/18 10:55 07/01/18 10:55 07/01/18 16:45 07/01/18 10:55 07/01/18 10:55 Oxygen Devices in Use Now: Nasal Cannula Appearance: Pt is sitting up in bed. She appears frail. She is weepy; in no acute distress. Eyes: No Scleral Icterus Ears/Nose/Mouth/Throat: NL Teeth, Lips, Gums, Clear Oropharnyx, Mucous Membranes Moist Neck: NL Appearance and Movements; NL JVP, Trachea Midline Respiratory: Symmetrical Chest Expansion and Respiratory Effort, Clear to Auscultation - Without rhonchi, wheeze, rales Cardiovascular: RRR - Systolic murmur, No Edema Extremities: No Edema, No Clubbing, Cyanosis, - - R heel with discoloration Skin: - - Sacral wound per Wound Care Neurological: Alert and Oriented x 3 Result Diagrams: 06/27/18 06:31 06/27/18 06:31 Additional Lab and Data: Laboratory Tests 06/25/18 06:17 Prealbumin 13 L Microbiology and Other Data: Microbiology 06/26/18 08:50 Stool Occult Blood (ALCIDES) - Final Stool Assess/Plan/Problems-Billing Assessment: Ms. Morales is a 72 yo F with a PMH of spinal stenosis and limited mobility and intermittent bowel and bladder incontinence with plan for cervical spine surgery on 07/04/[address] Miller, hypertension, and breast cancer s/p chemoradiation and lumpectomy who was admitted on 06/24/18 with a sacral pressure ulcer, acute on chronic kidney injury, and new anemia. 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 (3) Pressure ulcer Comment: -T&P Q2h -Vanco discontinued -Local wound care per Wound Care ELECTRICAL INSTALLER recs (4) Anxiety Comment: -Mood improved since room change and visit with her dog -Will continue morphine and ativan PRN with buspar -Medical Cost Consultant consult appreciated -Supportive care (5) Need for comfort care Comment: -Pain management per orders -Plan for hospice sign on [facility] on Tuesday (6) DNR (do not resuscitate) Comment: -Limited interventions on MOLST which was evaluated with palliative care Status and Disposition: Inpatient. Patient's condition is severe and she is currently non-operative. As suspected, patient continues to decline with sacral wound and bilateral PNA and inability to feed herself and perform ADLs 2/2 quadriparesis. Referral made to [facility] with hospice sign on, pending acceptance. Placed on Comfort Care.
[2018-07-01] MEDS ORDERED: Polyethylene Glycol 3350* 17 GM PACKET PO PRN (18:15)
[2018-07-01] MEDS ORDERED: Docusate CAP* 100 MG PO PRN (18:16)
[2018-07-01] MEDS: Magnesium Hydroxide LIQ* 30 ML UDC PO SCH (19:13)
[2018-07-02] MEDS: [UNRECOGNIZED DRUG - OTHER] PO SCH (05:36)
[2018-07-02] MEDS: Gabapentin CAP(*) 300 MG PO SCH ×2 (05:36→10:20)
[2018-07-02] MEDS: Levothyroxine TAB* 112 MCG TAB PO SCH (06:40)
[2018-07-02] MEDS: Ferrous Sulfate TAB* 325 MG PO SCH (07:57)
[2018-07-02] MEDS: Magnesium Hydroxide LIQ* 30 ML UDC PO SCH (07:57)
[2018-07-02] MEDS: Morphine TAB Extended Release (*) 15 MG TAB.ER PO SCH (07:57)
[2018-07-02] MEDS: guaiFENesin ER TAB 600 MG PO SCH (07:57)
[2018-07-02] MEDS: busPIRone TAB* 5 MG PO SCH ×2 (07:57→13:52)
[2018-07-02] MEDS: DULoxetine DR CAP* 20 MG CAP.DR PO SCH (07:57)
[2018-07-02] MEDS: Morphine ORAL CONCENTRATE* 5 MG/0.25 ML ORAL.SYRIN SL PRN ×2 (10:52→12:25)
--- NOTE | 2018-07-03 02:26 | DS ---
DISCHARGE SUMMARY: DATE OF ADMISSION: 06/24/18 DATE OF DISCHARGE: 07/02/18 PRIMARY CARE PROVIDER: Rajwinder Coyle NP. ATTENDING PHYSICIAN: Dr. Everett.* (DICTATED BY JASMEET AYALA) PRIMARY DIAGNOSES: 1. Decubitus ulcer. 2. Spinal stenosis. 3. Community-acquired pneumonia. 4. Malnutrition. SECONDARY DIAGNOSES: 1. Hypertension. 2. Hyperlipidemia. 3. Hypothyroidism. 4. Lumbar spinal stenosis. 5. Brachial plexopathy. 6. Breast cancer, status post lumpectomy, chemotherapy, and radiation. 7. Depression. 8. Anxiety. 9. Bilateral carpal tunnel. 10. Spondylosis with myelopathy of the cervical region. STUDIES WHILE IN THE HOSPITAL: Knee x-ray, 06/24/18, impression: No fracture of the right knee is noted. DISCHARGE MEDICATIONS: None. HISTORY OF PRESENT ILLNESS/HOSPITAL COURSE: Ms. Morales is a 72-year-old female with a past medical history as described above, who presented to the ER with pressure ulcer to the buttocks. She states that she had difficulty with ambulation for the past 5 days and complains of fatigue. She notes a history of spinal stenosis, which has caused limited mobility prior to that. History is also significant for brachial plexopathy, which she notes increased weakness in bilateral arms and lower extremities and also bowel and bladder incontinence. Due to immobility she has developed a pressure sore, which she states was approximately dime sized at first. She saw her primary care provider approximately 5 days ago for this and was noted to have a 3 cm scab wound with no exudates or erythema. In the ER, she was noted to have deep tissue injury that measured approximately 2 x 2 cm with an area of dry, dark eschar at the center, surrounded by an area of approximately 5 x 4 x 0.1 cm of superficial open area with surrounding erythema. The patient was admitted. She was started on vancomycin for this. Surgical consult was ordered for question of need for debridement. Surgery recommended local care. Wound consult was then ordered and recommendations were followed for the care of the patient pressure ulcer. The patient noted a desire to pursue palliative care/hospice. At this time, vancomycin was discontinued for her wound. It was noted that the patient's prealbumin was 13 on admission, signifying malnutrition. She states she has difficulty feeding herself. She was taking Ensure, with dietitian following. Dr. Camacho was consulted for recommendations for pain management. MS Leslie was ordered for basal pain control with Roxanol ordered for breakthrough. A plan was made for hospice sign on and the patient would be discharged to [facility] on Tuesday. The patient was noted to have fever, hypoxia, and diagnosis of pneumonia on chest x- ray. She was started on Levaquin for this, which was continued throughout her stay. At the end of her stay, the patient was noted to be on comfort measures. She was given morphine as needed for comfort. She eventually , surrounded by family. This is a summarized report of a complex medical history and hospital stay. For further details, please see the entire medical record. TIME SPENT: Approximately 30 minutes were spent on this discharge, greater than half of that time was spent with the family and patient. JASMEET AYALA [id number]/[facility] #: [id number] ANDREA
[2018-07-03] MEDS ORDERED: PPD Reading NOTE* (*USE PPD ORDER SET*) ONE (08:00)
== END 2018-07-02 14:20 | disposition expired | DRG 592 ==
LOC: ED 15:35 → MED 22:02
PROVIDERS: ADMIT Internal Medicine; ATTEND Internal Medicine
DX: L89.159 Pressure ulcer of sacral region, unspecified stage (principal); J18.9 Pneumonia, unspecified organism; G82.50 Quadriplegia, unspecified; M47.12 Other spondylosis with myelopathy, cervical region; N17.9 Acute kidney failure, unspecified; Z88.6 Allergy status to analgesic agent; Z88.1 Allergy status to other antibiotic agents; E03.9 Hypothyroidism, unspecified; Z85.3 Personal history of malignant neoplasm of breast; Z92.21 Personal history of antineoplastic chemotherapy; Z92.3 Personal history of irradiation; Z87.891 Personal history of nicotine dependence; E78.5 Hyperlipidemia, unspecified; F32.9 Major depressive disorder, single episode, unspecified; F41.9 Anxiety disorder, unspecified; Z83.3 Family history of diabetes mellitus; G54.0 Brachial plexus disorders; N18.3 Chronic kidney disease, stage 3 (moderate); I12.9 Hypertensive chronic kidney disease with stage 1 through stage 4 chronic kidney disease, or unspecified chronic kidney disease; D64.9 Anemia, unspecified
CPT/HCPCS: 36415; 71045; 80048; 80053; 80076; 80202; 81003; 82272; 82565; 82607; 82728; 83540; 83550; 84134; 84520; 85014; 85018; 85025; 86140; 86850; 86900; 86901; 86922; 94640; 99284; A9270-GY; J1644; J2270; J2405; J3370; P9040